=== PATIENT | female | born 1980 | race Caucasian/White ===

== ENCOUNTER 2016-08-03 10:54 | Emergency (ER) | payer MEDICAID | END 2016-08-03 12:40 | disposition home or self-care (01) | LOC: D.ER 10:54 | DX: M54.5 Low back pain (principal); I10 Essential (primary) hypertension; F31.9 Bipolar disorder, unspecified ==

== ENCOUNTER 2016-11-21 15:18 | Emergency (ER) | payer MEDICAID | END 2016-11-21 17:00 | disposition home or self-care (01) | LOC: D.ER 15:18 | DX: M25.561 Pain in right knee (principal); S82.114A Nondisplaced fracture of right tibial spine, initial encounter for closed fracture; X58.XXXA Exposure to other specified factors, initial encounter ==

== ENCOUNTER → 2016-12-04 09:37 | Outpatient (CLI) | payer MEDICAID | END | disposition home or self-care (01) | LOC: D.MRI 09:37 | DX: M25.561 Pain in right knee (principal) ==

== ENCOUNTER 2016-12-17 10:00 | Day surgery (SDC) | payer MEDICAID ==
[2016-12-14 14:47] LABS: BASOPHILS 0.2 % (0-2); EOSINOPHILS 1.2 % (0-7); HEMATOCRIT 38.5 % (36.0-48.0); HEMOGLOBIN 12.8 g/dL (12-16); IMMATURE GRANULOCYTES 0.2 % (0-5); LYMPHOCYTES 11.8 % (15-50); MCH 29.2 pg (26.0-34.0); MCHC 33.2 g/dL (31.0-37.0); MCV 87.7 fL (80.0-100.0); MEAN PLATELET VOLUME 8.9 fL (7.4-10.4); MONOCYTES 9.3 % (2-11); NEUTROPHILS 77.3 % (40-80); PLATELET COUNT 257 10x3/uL (130-400); RBC 4.39 10x6/uL (4.00-5.40); RDW 15.1 % (11.5-14.5); WBC 12.1 10x3/uL (4.8-10.8)
[2016-12-14 15:04] LABS: APTT 24.5 SECONDS (22.8-39.4); INR 1.02 (0.85-1.17); PROTIME 13.3 SECONDS (11.6-15.0)
[2016-12-14 15:05] LABS: ANION GAP 10.6 mmol/L (8-16); CALCIUM 8.5 mg/dL (8.5-10.1); CARBON DIOXIDE 25.3 mmol/L (21.0-32.0); CREATININE - SERUM 1.2 mg/dL (0.6-1.3); POTASSIUM - SERUM 3.9 mmol/L (3.5-5.1)
[~2016-12-17] VITALS: Ht 154.9 cm; Wt 111.6 kg
[~2016-12-17 10:00] MED LIST: ZIAC 5-6.25 MG1 TAB PO
--- NOTE | 2016-12-17 10:26 | NUR ---
1020 WBC RESULTS 12.1. PT STATES NO UPPER RESPIRATORY INFECTION OR PROBLEM TO ATTRIBUTE TO ELEVATED WBC COUNT. DR. RUSH INFORMED. NO ORDERS GIVEN OR RECEIVED. Reagan WOOD R.N.
[2016-12-17 11:23] VITALS: BP 108/64; Ht 154.9 cm; Wt 111.6 kg
[2016-12-17] MEDS ORDERED: HYDROCODONE-APA1 TAB PO (14:31)
--- NOTE | 2016-12-17 18:58 | NUR ---
1410 ICE PACK APPLIED TO RT KNEE AND ELEVATION 1502 ZOFRAN GIVEN PO FOR NAUSEA AND PAIN MED ORDERED 1517 NORCO 10/325MG PO GIVEN FOR PAIN 8(1-10) STATES DECREASE IN NAUSEA 1615 DC TEACHING COMPLETE PT VU PAPERS AND SCRPIT GIVEN TO SIGNIFICANT OTHER. PT VERB SHE WAS NAUSEATED WHEN SAT UP TO SIGN DC PAPERS 1620 PIV DC W/CATHETER TIP INTACT 1625 NO C/O NAUSEA ASSISTED W/GETTING DRESSED 1630 OUT TO CAR VIA WC W/SIGNIFICANT OTHER DRIVING
== END 2016-12-17 16:30 | disposition home or self-care (01) ==
LOC: D.OPS 10:00 → D.PAN 12:00 → D.OPS 16:30
PROVIDERS: Anesthesiology
DX: S83.241A Other tear of medial meniscus, current injury, right knee, initial encounter (principal); F17.200 Nicotine dependence, unspecified, uncomplicated; I10 Essential (primary) hypertension; Z01.812 Encounter for preprocedural laboratory examination

== ENCOUNTER → 2017-02-05 12:57 | Outpatient (CLI) | payer MEDICAID ==
[2016-12-17 11:23] VITALS: BMI 46.6
[~2017-02-05 12:57] MED LIST changes: +HYDROCODONE-APA1 TAB PO
== END | disposition home or self-care (01) ==
LOC: D.MRI 12:57
DX: G89.18 Other acute postprocedural pain (principal); M25.561 Pain in right knee

== ENCOUNTER 2017-02-28 05:42 | Day surgery (SDC) | payer MEDICAID ==
[2017-02-26 11:32] LABS: BASOPHILS 0.4 % (0-2); EOSINOPHILS 4.8 % (0-7); HEMATOCRIT 37.5 % (36.0-48.0); HEMOGLOBIN 12.4 g/dL (12-16); IMMATURE GRANULOCYTES 0.3 % (0-5); LYMPHOCYTES 28.1 % (15-50); MCH 29.5 pg (26.0-34.0); MCHC 33.1 g/dL (31.0-37.0); MCV 89.3 fL (80.0-100.0); MEAN PLATELET VOLUME 9.1 fL (7.4-10.4); MONOCYTES 10.8 % (2-11); NEUTROPHILS 55.6 % (40-80); PLATELET COUNT 258 10x3/uL (130-400); RDW 14.9 % (11.5-14.5); WBC 7.7 10x3/uL (4.8-10.8)
[2017-02-26 11:43] LABS: CALC OSMOLALITY 281 mosm/kg (275-300); CALCIUM 9.1 mg/dL (8.5-10.1); CARBON DIOXIDE 29.8 mmol/L (21.0-32.0); CHLORIDE - SERUM 106 mmol/L (98-107); CREATININE - SERUM 0.8 mg/dL (0.6-1.3); GLUCOSE 102 mg/dL (74-106); POTASSIUM - SERUM 3.9 mmol/L (3.5-5.1); SODIUM 142 mmol/L (136-145); UREA NITROGEN 11 mg/dL (7-18); eGFR NON AFRICAN AMERICAN 85 mL/min (90-120)
[~2017-02-28] VITALS: Ht 154.9 cm; Wt 113.4 kg
[~2017-02-28 05:42] MED LIST changes: +MELATONIN10 M1 PO
[2017-02-28 09:36] VITALS: BP 114/66; Ht 154.9 cm; Wt 113.4 kg
[2017-02-28] MEDS ORDERED: PERCOCET 10/3251 TA1 PO (11:29)
--- NOTE | 2017-02-28 13:26 | NUR ---
7840 DISCHARGE INSTRUCTIONS COMPLETE. PRESCRIPTION FOR PERCOCET GIVEN. PRESCRIPTION FOR PROMETHAZINE CALLED INTO [facility]. ESCORTED OUT BY VOLUNTEER.
--- NOTE | 2017-03-01 14:55 | OP ---
PATIENT NAME: LILIBETH PALOMARES MEDICAL RECORD: [id number] :80 LOCATION:D.OPS ADMISSION DATE: SURGEON: PHILLY RUSH MD DATE OF OPERATION: 02/28/2017 PREOPERATIVE DIAGNOSIS: Complex tear of the posterior horn of the lateral meniscus. POSTOPERATIVE DIAGNOSIS: Complex tear of the posterior horn of the lateral meniscus. PROCEDURE: Arthroscopic subtotal lateral meniscectomy. SURGEON: Philly Rush MD. ANESTHESIA: General. INTRAOPERATIVE COMPLICATIONS: None. SUMMARY OF PATHOLOGIC FINDINGS: The patient was indeed found to have a lateral meniscus tear off the posterior capsule that was subluxable into the joint. The patient's tear was both posteromedially and posterolaterally from the popliteal hiatus and the meniscus itself was in overall poor condition. OPERATIVE SUMMARY IN DETAIL: After obtaining the appropriate preoperative orthopedic surgery consent as well as anesthetic consultation, evaluation and clearance, the patient was brought to the operating room and placed on the operating table in supine position. After general laryngeal mask was administered, tourniquet was placed about the proximal aspect of the right lower extremity. Right lower extremity was then prepped and draped in routine sterile fashion. The leg was elevated and exsanguinated, tourniquet inflated to 350 mmHg. Routine inferolateral portal was established followed by superomedial portal and inferomedial portal. Diagnostic arthroscopy did reveal the above findings. There was no pathology in the medial compartment. 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 The foot was then placed in the [id number] position and with direct visualization in the lateral compartment, a combination of both arthroscopic meniscotome as well as resector were utilized to resect a large portion of the posterior lateral aspect of the lateral meniscus, thus the subtotal lateral meniscectomy. Having completed this, the knee was insufflated with 30 cc of 0.25% Marcaine with epinephrine and 40 mg of Depo-Medrol. Arthroscopy portals were closed in routine interrupted fashion using 4-0 Prolene. Sterile dressings were applied. The patient was awakened, taken to recovery room in stable condition. All final needle and sponge counts were correct. TRANSINT:[id number] Voice Confirmation ID: [id number] DOCUMENT ID: [id number] OPERATIVE REPORT [id number] DEJAWILLA FRIEDMANA John VICTOR MANUEL GOMES, PHILLY TSATON at 1455 CC: [id number] DICTATION DATE: 02/28/17 1328 CALCULUS PROFESSOR: 02/28/[address] [place] [address] 02/28/17 [place] [id number] [place] [address]
== END 2017-02-28 13:30 | disposition home or self-care (01) ==
LOC: D.OPS 05:42 → D.PAN 11:20 → D.OPS 13:30 → D.PAN 14:00
PROVIDERS: Anesthesiology
DX: S83.271A Complex tear of lateral meniscus, current injury, right knee, initial encounter (principal); F17.200 Nicotine dependence, unspecified, uncomplicated; I10 Essential (primary) hypertension; Z01.812 Encounter for preprocedural laboratory examination

== ENCOUNTER → 2017-05-17 13:54 | Outpatient (CLI) | payer MEDICAID ==
[2017-02-28 09:36] VITALS: BMI 47.3
[~2017-05-17 13:54] MED LIST changes: +ATIVAN1 MG PO; +CELEXA20 MG PO; +LITHIUM CARBON300 MG PO; +PERCOCET 10/3251 TA1 PO
== END | disposition home or self-care (01) ==
LOC: D.MRI 05-08 13:00
DX: M25.561 Pain in right knee (principal)

== ENCOUNTER → 2017-05-27 08:30 | Day surgery (SDC) | payer MEDICAID ==
[2017-05-24 14:08] LABS: HEMATOCRIT 39.7 % (36.0-48.0); HEMOGLOBIN 13.2 g/dL (12-16); MCH 29.1 pg (26.0-34.0); MCHC 33.2 g/dL (31.0-37.0); MCV 87.6 fL (80.0-100.0); RBC 4.53 10x6/uL (4.00-5.40); RDW 14.8 % (11.5-14.5); WBC 11.1 10x3/uL (4.8-10.8)
[2017-05-24 14:16] LABS: ANION GAP 12.7 mmol/L (8-16); CARBON DIOXIDE 28.3 mmol/L (21.0-32.0); CREATININE - SERUM 0.9 mg/dL (0.6-1.3)
[~2017-05-27] VITALS: Ht 154.9 cm; Wt 117.9 kg
[2017-05-27 10:47] VITALS: BP 113/71; Ht 154.9 cm; Wt 117.9 kg
--- NOTE | 2017-05-30 14:17 | OP ---
PATIENT NAME: LILIBETH PALOMARES MEDICAL RECORD: [id number] :80 LOCATION:DSVETLANA ADMISSION DATE: SURGEON: PHILLY RUSH MD DATE OF OPERATION: 05/27/2017 PREOPERATIVE DIAGNOSIS: Bucket-handle tear of the lateral meniscus of the left knee. POSTOPERATIVE DIAGNOSIS: Bucket-handle tear of the lateral meniscus of the left knee. PROCEDURE: Arthroscopic partial lateral meniscectomy. SURGEON: Philly Rush MD ANESTHESIA: General. INTRAOPERATIVE COMPLICATIONS: None. SUMMARY OF PATHOLOGIC FINDINGS: Consistent with the MRI, the patient had a bucket-handle lateral meniscus with some portions of the lateral meniscus posterior medial root into the intercondylar notch. All this was removed, the patient was found to have areas of grade II chondromalacia both medial femoral condyle and lateral femoral condyle. OPERATIVE SUMMARY IN DETAIL: After obtaining the appropriate preoperative orthopedic surgery consent as well as anesthetic consultation, evaluation and clearance, the patient was brought to the operating room and placed on table in supine position. After general laryngeal mask was administered, tourniquet was placed about the proximal aspect of left lower extremity. Left lower extremity was then prepped and draped in routine sterile fashion. The leg was elevated and exsanguinated, tourniquet inflated to 350 mmHg. Routine inferolateral portal was established followed by superomedial portal and inferomedial portal. Diagnostic arthroscopy did reveal the patient to have a bucket-handle lateral meniscus. This was taken down with a combination of meniscotomes as well as full radius resector and further debridement was carried out on the posteromedial corner of the lateral meniscus to take down the part of the root to the foot in the intercondylar notch. The residual of her knee including her medial meniscus where she had previously had a medial meniscus tear was in overall good condition. Again, small amount of arthritis was seen in both medial and lateral compartments. Having completed this, arthroscopy portals were closed in an interrupted fashion. The knee was insufflated with 30 cc of 0.25% Marcaine with epinephrine 80 mg/cc Depo-Medrol. Sterile dressings were applied. Tourniquet was deflated. The patient was awakened, taken to recovery in stable condition. All final needle and sponge counts were correct. TRANSINT:[id number] Voice Confirmation ID: [id number] DOCUMENT ID: [id number] OPERATIVE REPORT [id number] LILIBETH PALOMARES MD, PHILLY STATON at 1417 CC: [id number] DICTATION DATE: 05/27/17 1310 SOILED LINEN DISTRIBUTOR: 05/27/17 1527 [facility] 05/27/17 [place] [address] [place] [id number]
== END | disposition home or self-care (01) ==
LOC: D.OPS 08:30 → D.PAN 11:30 → D.OPS 11:30
PROVIDERS: Anesthesiology
DX: S83.252A Bucket-handle tear of lateral meniscus, current injury, left knee, initial encounter (principal); M25.561 Pain in right knee; Z01.812 Encounter for preprocedural laboratory examination; F17.200 Nicotine dependence, unspecified, uncomplicated; I10 Essential (primary) hypertension

== ENCOUNTER → 2018-02-27 09:27 | Outpatient (CLI) | payer MEDICAID ==
[2017-05-27 10:47] VITALS: BMI 49.2
[~2018-02-27 09:27] MED LIST changes: +BISOPROLOL-HCT1 EAC1 PO
== END | disposition home or self-care (01) ==
LOC: D.MRI 02-21 15:00
DX: M25.561 Pain in right knee (principal)

== ENCOUNTER 2018-03-03 11:46 | Emergency (ER) | payer MEDICAID ==
[~2018-03-03] VITALS: Ht 154.9 cm; Wt 118.2 kg
[~2018-03-03 11:46] MED LIST changes: -BISOPROLOL-HCT1 EAC1 PO
[2018-03-03 11:55] VITALS: Ht 154.9 cm; Wt 118.2 kg
[2018-03-03 12:30] LABS: BASOPHILS 0.2 % (0-2); EOSINOPHILS 3.3 % (0-7); HEMATOCRIT 35.4 % (36.0-48.0); HEMOGLOBIN 11.6 g/dL (12-16); IMMATURE GRANULOCYTES 0.2 % (0-5); LYMPHOCYTES 19.1 % (15-50); MCH 28.2 pg (26.0-34.0); MCHC 32.8 g/dL (31.0-37.0); MCV 85.9 fL (80.0-100.0); MEAN PLATELET VOLUME 8.6 fL (7.4-10.4); MONOCYTES 7.9 % (2-11); NEUTROPHILS 69.3 % (40-80); RBC 4.12 10x6/uL (4.00-5.40); RDW 15.8 % (11.5-14.5); WBC 8.9 10x3/uL (4.8-10.8)
[2018-03-03 12:32] LABS: PLATELET COUNT 213 10x3/uL (130-400)
[2018-03-03 12:42] LABS: ALBUMIN 3.5 g/dL (3.4-5.0); ALKALINE PHOSPHATASE 70 U/L (46-116); ALT (SGPT) 31 U/L (10-68); BILIRUBIN - TOTAL 0.42 mg/dL (0.2-1.3); CALC OSMOLALITY 277 mosm/kg (275-300); CALCIUM 8.9 mg/dL (8.5-10.1); CARBON DIOXIDE 25.5 mmol/L (21.0-32.0); CHLORIDE - SERUM 104 mmol/L (98-107); CREATININE - SERUM 0.9 mg/dL (0.6-1.3); GLUCOSE 104 mg/dL (74-106); POTASSIUM - SERUM 4.2 mmol/L (3.5-5.1); PROTEIN - SERUM 7.7 g/dL (6.4-8.2); SODIUM 139 mmol/L (136-145); UREA NITROGEN 13 mg/dL (7-18); eGFR NON AFRICAN AMERICAN 74 mL/min (90-120)
[2018-03-03 12:54] LABS: CKMB 0.6 U/L (0.0-3.6); CREATINE KINASE 52 UL (21-215)
[2018-03-03 12:59] LABS: TROPONIN-I < 0.017 ng/mL (0.000-0.060)
[2018-03-03] MEDS ORDERED: BISOPROLOL-HCT1 EAC1 PO (14:45)
[2018-03-03 16:08] VITALS: BP 168/94
== END 2018-03-03 16:07 | disposition home or self-care (01) ==
LOC: D.ER 11:46
PROVIDERS: Family Medicine
DX: I10 Essential (primary) hypertension (principal)

== ENCOUNTER → 2018-04-25 10:13 | Outpatient (CLI) | payer MEDICAID ==
[2018-03-03 11:55] VITALS: BMI 49.2
[~2018-04-25 10:13] MED LIST changes: +BISOPROLOL-HCT1 EAC1 PO; +ELIQUIS2.5 MG PO; +OXYCODONE-APAP1 TAB PO
== END | disposition home or self-care (01) ==
LOC: D.LABREF 10:13
DX: M17.11 Unilateral primary osteoarthritis, right knee (principal); Z11.8 Encounter for screening for other infectious and parasitic diseases

== ENCOUNTER 2018-05-14 10:00 | Inpatient (IN) | payer MEDICAID ==
[~2018-05-14] VITALS: Ht 154.9 cm; Wt 115.7 kg
--- NOTE | ~2018-05-14 | MORECARE ---
CASE MANAGEMENT DISCHARGE SUMMARY PATIENT: LILIBETH PALOMARES UNIT: [id number] ADM DATE: 05/19/18 AGE: 38 : 80 SEX: F ROOM/BED: D.2212 AUTHOR: MISHEL,DOC PHYSICIAN: REFERRING PHYSICIAN: PHILLY RUSH MD DATE OF SERVICE: 05/21/18 Discharge Plan Patient Name: LILIBETH PALOMARES Facility: [facility]:[place] : 1980 Planned Disposition: Home with Home Health Anticipated Discharge Date: Discharge Date: Expected LOS: Initial Reviewer: [email or web address] Initial Review Date: 05/19/2018 Generated: 05/21/18 2:08 pm Comments DCP- Discharge Planning Updated by [email or web address]: Re Motta on 05/21/18 11:[address] Patient Name: LILIBETH PALOMARES Admission Status: Elective Accout number: [id number] Admission Date: 05-19-2018 : 1980 Admission Diagnosis: Attending: PHILLY RUSH Current LOS: 2 Anticipated DC Date: Planned Disposition: Home with Home Health Primary Insurance: MEDICAID [place] Discharge Planning Comments: CM met with patient to assess discharge planning needs. Patient stated that she will be discharging home and would like to have home health for her therapy. She will be living where she will not have to use the stairs. She will need a walker, BSC and CPM at dc. I will call and make sure all is delivered prior to DC. CECELIA with [employer] [facility], I spoke with Shanell . CM will continue to follow and assist with DC planning V Belt Curer: Re Motta DCPIA - Discharge Planning Initial Assessment Updated by [email or web address]: Re Motta on 05/21/18 12:56 pm * Is the patient Alert and Oriented? Yes * How many steps to enter\exit or inside your home? downstairs * [facility] * [facility] [address] * Preadmission Environment Home with Family * ADLs Independent * Equipment Walker * List name and contact numbers for known caregivers / representatives who currently or will assist patient after discharge: genia [phone] * Verbal permission to speak to the caregivers and representatives has been obtained from the patient. N/A * Community resources currently utilized None * Additional services required to return to the preadmission environment? No * Can the patient safely return to the preadmission environment? Yes * Has this patient been hospitalized within the prior 30 days at any hospital? No External Providers [facility] Next Contact Date: Service Request Date: Service Type: Resolution: Reviewer: Comments: Last DP export: 05/21/18 11:59 a Patient Name: LILIBETH PALOMARES Page 02692 at 1308 All edits/amendments must be made on the electronic document DICTATION DATE: 05/21/18 1307 [employer] ARCHITECT: LUCILA 05/21/18 1307 RPT#: [id number] DC DATE: STATUS: ADM IN [facility] [address] [place] [address] END OF REPORT
--- NOTE | ~2018-05-14 | MORECARE ---
CASE MANAGEMENT DISCHARGE SUMMARY PATIENT: LILIBETH PALOMARES UNIT: [id number] ADM DATE: 05/19/18 AGE: 38 : 80 SEX: F ROOM/BED: D.2212 AUTHOR: MISHEL,DOC PHYSICIAN: REFERRING PHYSICIAN: PHILLY RUSH MD DATE OF SERVICE: 05/21/18 Discharge Plan Patient Name: LILIBETH PALOMARES Facility: [facility]:[place] : 1980 Planned Disposition: Home with Home Health Anticipated Discharge Date: Discharge Date: Expected LOS: Initial Reviewer: [email or web address] Initial Review Date: 05/19/2018 Generated: 05/21/18 1:59 pm Comments DCP- Discharge Planning Updated by [email or web address]: Re Motta on 05/21/18 11:[address] Patient Name: LILIBETH PALOMARES Admission Status: Elective Accout number: [id number] Admission Date: 05-19-2018 : 1980 Admission Diagnosis: Attending: PHILLY RUSH Current LOS: 2 Anticipated DC Date: Planned Disposition: Home with Home Health Primary Insurance: MEDICAID [place] Discharge Planning Comments: CM met with patient to assess discharge planning needs. Patient stated that she will be discharging home and would like to have home health for her therapy. She will be living where she will not have to use the stairs. She will need a walker, BSC and CPM at dc. I will call and make sure all is delivered prior to DC. CECELIA with [employer] [facility], I spoke with Shanell . CM will continue to follow and assist with DC planning Ship Pilot: Re Motta DCPIA - Discharge Planning Initial Assessment Updated by [email or web address]: Re Motta on 05/21/18 12:56 pm * Is the patient Alert and Oriented? Yes * How many steps to enter\exit or inside your home? downstairs * [facility] * [facility] [address] * Preadmission Environment Home with Family * ADLs Independent * Equipment Walker * List name and contact numbers for known caregivers / representatives who currently or will assist patient after discharge: genia [phone] * Verbal permission to speak to the caregivers and representatives has been obtained from the patient. N/A * Community resources currently utilized None * Additional services required to return to the preadmission environment? No * Can the patient safely return to the preadmission environment? Yes * Has this patient been hospitalized within the prior 30 days at any hospital? No Patient Name: LILIBETH PALOMARES Page 15419 at 1259 All edits/amendments must be made on the electronic document DICTATION DATE: 05/21/181258 DETAIL DRAFTER: LUCILA 05/21/181258 RPT#: [id number] DC DATE: STATUS: ADM IN [facility] [address] [place] [address] END OF REPORT
--- NOTE | ~2018-05-14 | MORECARE ---
CASE MANAGEMENT DISCHARGE SUMMARY PATIENT: LILIBETH PALOMARES UNIT: [id number] ADM DATE: 05/19/18 AGE: 38 : 80 SEX: F ROOM/BED: D.2212 AUTHOR: ABDIAZIZ FLORENTINO PHYSICIAN: REFERRING PHYSICIAN: PHILLY RUSH MD DATE OF SERVICE: 05/22/18 Discharge Plan Patient Name: LILIBETH PALOMARES Facility: [facility]:[place] : 1980 Planned Disposition: Home with Home Health Anticipated Discharge Date: Discharge Date: Expected LOS: Initial Reviewer: [email or web address] Initial Review Date: 05/19/2018 Generated: 05/22/18 12:10 pm Comments DCP- Discharge Planning Updated by [email or web address]: Re Motta on 05/22/18 10:[address] PATIENT WILL BE DISCHARGING TODAY WITH [facility], [facility]ALKER TO THE HOSPITAL AND CPM AND BSC TO HER HOME. CM WILL CONTINUE TO FOLLOW AND ASSIST WITH DC PLANNING NEEDS DCP- Discharge Planning Updated by [email or web address]: Re Motta on 05/21/18 11:[address] Patient Name: LILIBETH PALOMARES Admission Status: Elective Accout number: [id number] Admission Date: 05-19-2018 : 1980 Admission Diagnosis: Attending: PHILLY RUSH Current LOS: 2 Anticipated DC Date: Planned Disposition: Home with Home Health Primary Insurance: MEDICAID [place] Discharge Planning Comments: CM met with patient to assess discharge planning needs. Patient stated that she will be discharging home and would like to have home health for her therapy. She will be living where she will not have to use the stairs. She will need a walker, BSC and CPM at dc. I will call and make sure all is delivered prior to DC. CECELIA with [employer] [facility], I spoke with Shanell . CM will continue to follow and assist with DC planning Wellness Guide: Re Motta DCPIA - Discharge Planning Initial Assessment Updated by [email or web address]: Re Motta on 05/21/18 12:56 pm * Is the patient Alert and Oriented? Yes * How many steps to enter\exit or inside your home? downstairs * [facility] * [facility] [address] * Preadmission Environment Home with Family * ADLs Independent * Equipment Walker * List name and contact numbers for known caregivers / representatives who currently or will assist patient after discharge: genia [phone] * Verbal permission to speak to the caregivers and representatives has been obtained from the patient. N/A * Community resources currently utilized None * Additional services required to return to the preadmission environment? No * Can the patient safely return to the preadmission environment? Yes * Has this patient been hospitalized within the prior 30 days at any hospital? No Last DP export: 05/21/18 12:08 p Patient Name: LILIBETH PALOMARES Page 75633 at 1110 All edits/amendments must be made on the electronic document DICTATION DATE: 05/22/181108 DENTAL PATIENT COORDINATOR: LUCILA 05/22/181108 RPT#: [id number] DC DATE: STATUS: ADM IN [facility] [address] [place] [address] END OF REPORT
--- NOTE | ~2018-05-14 | MORECARE ---
CASE MANAGEMENT DISCHARGE SUMMARY PATIENT: LILIBETH PALOMARES UNIT: [id number] ADM DATE: 05/19/18 AGE: 38 : 80 SEX: F ROOM/BED: D.2212 AUTHOR: ABDIAZIZ FLORENTINO PHYSICIAN: REFERRING PHYSICIAN: PHILLY RUSH MD DATE OF SERVICE: 05/22/18 Discharge Plan Patient Name: LILIBETH PALOMARES Facility: [facility]:[place] : 1980 Planned Disposition: Home with Home Health Anticipated Discharge Date: Discharge Date: Expected LOS: Initial Reviewer: [email or web address] Initial Review Date: 05/19/2018 Generated: 05/22/18 2:52 pm Comments DCP- Discharge Planning Updated by [email or web address]: Re Motta on 05/22/18 12:[address] PATIENT IS DISCHARING TODAY. PAIN MEDICINE SCRIPT NEEDED TO BE PRE AUTH I CALLED [phone] SPOKE WITH JOSIAH, SHE STATED THAT THEY NEEDED CLINICALS FAXED IN I FAXED CLINICALS TO [phone]. I EXPLAINED ALL TO THE PATIENT. CM WILL CONTINUE TO FOLLOW AND ASSSIST WITH DC PLANNING DCP- Discharge Planning Updated by [email or web address]: Re Motta on 05/22/18 10:[address] PATIENT WILL BE DISCHARGING TODAY WITH [facility], [facility] WALKER TO THE HOSPITAL AND CPM AND BSC TO HER HOME. CM WILL CONTINUE TO FOLLOW AND ASSIST WITH DC PLANNING NEEDS DCP- Discharge Planning Updated by [email or web address]: Re Motta on 05/21/18 11:[address] Patient Name: LILIBETH PALOMARES Admission Status: Elective Accout number: [id number] Admission Date: 05-19-2018 : 1980 Admission Diagnosis: Attending: PHILLY RUSH Current LOS: 2 Anticipated DC Date: Planned Disposition: Home with Home Health Primary Insurance: MEDICAID [place] Discharge Planning Comments: CM met with patient to assess discharge planning needs. Patient stated that she will be discharging home and would like to have home health for her therapy. She will be living where she will not have to use the stairs. She will need a walker, BSC and CPM at dc. I will call and make sure all is delivered prior to DC. CECELIA with [employer], I spoke with Shanell . CM will continue to follow and assist with DC planning Lining Closer: Re Motta DCPIA - Discharge Planning Initial Assessment Updated by [email or web address]: Re Motta on 05/21/18 12:56 pm * Is the patient Alert and Oriented? Yes * How many steps to enter\exit or inside your home? downstairs * [facility] * [facility] [address] * Preadmission Environment Home with Family * ADLs Independent * Equipment Walker * List name and contact numbers for known caregivers / representatives who currently or will assist patient after discharge: genia [phone] * Verbal permission to speak to the caregivers and representatives has been obtained from the patient. N/A * Community resources currently utilized None * Additional services required to return to the preadmission environment? No * Can the patient safely return to the preadmission environment? Yes * Has this patient been hospitalized within the prior 30 days at any hospital? No Last DP export: 05/22/18 10:10 a Patient Name: LILIBETH PALOMARES Page 04217 at 1352 All edits/amendments must be made on the electronic document DICTATION DATE: 05/22/18 1351 TICKET MANAGER: LUCILA 05/22/18 1351 RPT#: [id number] DC DATE: STATUS: ADM IN [facility] [address] [place] [address] END OF REPORT
[~2018-05-14 10:00] MED LIST changes: -ELIQUIS2.5 MG PO; -OXYCODONE-APAP1 TAB PO
[2018-05-14 11:58] LABS: BASOPHILS 0.2 % (0-2); EOSINOPHILS 2.1 % (0-7); HEMOGLOBIN 13.2 g/dL (12-16); IMMATURE GRANULOCYTES 0.2 % (0-5); LYMPHOCYTES 19.1 % (15-50); MCH 29.1 pg (26.0-34.0); MCV 88.3 fL (80.0-100.0); MONOCYTES 7.4 % (2-11); RBC 4.53 10x6/uL (4.00-5.40); RDW 16.2 % (11.5-14.5)
[2018-05-14 12:00] LABS: PLATELET COUNT 260 10x3/uL (130-400)
[2018-05-14 12:02] LABS: APTT 25.4 SECONDS (22.8-39.4); INR 1.03 (0.85-1.17)
[2018-05-14 12:06] LABS: ANION GAP 11.6 mmol/L (8-16); CALCIUM 9.4 mg/dL (8.5-10.1); CARBON DIOXIDE 28.3 mmol/L (21.0-32.0); POTASSIUM - SERUM 3.9 mmol/L (3.5-5.1)
[2018-05-14 12:16] LABS: APPEARANCE SL CLDY (CLEAR); BACTERIA MANY /hpf (NONE SEEN); BILIRUBIN NEGATIVE (NEGATIVE); COLOR YELLOW (YELLOW); EPITHELIAL CELLS 0-5 /hpf (0-5); GLUCOSE NEGATIVE (NEGATIVE); KETONE NEGATIVE (NEGATIVE); MUCUS <1+ /lpf (NONE SEEN); NITRITE NEGATIVE (NEGATIVE); PROTEIN NEGATIVE (NEGATIVE); RED CELLS - URINE 0-5 /hpf (0-5); SPECIFIC GRAVITY 1.015 (1.005-1.020); UROBILINOGEN NORMAL (NORMAL)
[2018-05-19 11:52] VITALS: BP 112/81; BMI 47.3
[2018-05-19 17:52] VITALS: BP 135/89
[2018-05-19 18:07] VITALS: BP 105/83; Ht 154.9 cm; Wt 115.7 kg
[2018-05-19 20:00] VITALS: BP 128/81
[2018-05-20 05:05] LABS: HEMATOCRIT 34.1 % (36.0-48.0); HEMOGLOBIN 11.3 g/dL (12-16); MCH 29.4 pg (26.0-34.0); MCHC 33.1 g/dL (31.0-37.0); MCV 88.6 fL (80.0-100.0); MEAN PLATELET VOLUME 8.8 fL (7.4-10.4); RBC 3.85 10x6/uL (4.00-5.40); RDW 15.9 % (11.5-14.5); WBC 16.6 10x3/uL (4.8-10.8)
[2018-05-20 06:03] VITALS: BP 124/87
[2018-05-20 08:19] VITALS: BP 112/78
[2018-05-20 11:39] VITALS: BP 130/58
[2018-05-20 15:54] VITALS: BP 102/59
[2018-05-20 22:49] VITALS: BP 117/67
[2018-05-21] VITALS: BP 119/79; BP 120/71
[2018-05-21 04:48] LABS: HEMATOCRIT 32.8 % (36.0-48.0); HEMOGLOBIN 10.5 g/dL (12-16); MCH 28.9 pg (26.0-34.0); MCV 90.4 fL (80.0-100.0); MEAN PLATELET VOLUME 9.1 fL (7.4-10.4); RBC 3.63 10x6/uL (4.00-5.40); RDW 16.5 % (11.5-14.5)
[2018-05-21 04:54] LABS: WBC 11.5 10x3/uL (4.8-10.8)
[2018-05-21 06:34] VITALS: BP 120/71
[2018-05-21 08:34] VITALS: BP 143/80
[2018-05-21 12:03] VITALS: BP 105/68
[2018-05-21 16:21] VITALS: BP 109/69
[2018-05-21 20:00] VITALS: BP 108/61
[2018-05-22 05:40] VITALS: BP 121/81
[2018-05-22] MEDS ORDERED: ELIQUIS2.5 MG PO (08:02)
[2018-05-22] MEDS ORDERED: OXYCODONE-APAP1 TAB PO (08:03)
[2018-05-22 10:20] VITALS: BP 120/80
[2018-05-22 12:34] VITALS: BP 104/59
== END 2018-05-22 14:35 | disposition home health service (06) | DRG 470 ==
LOC: D.SDCHOLD 10:00 → D.MS 05-19 16:24
PROVIDERS: Orthopaedic Surgery
PROC: 0SRC0JZ Replacement of Right Knee Joint with Synthetic Substitute, Open Approach (ICD-10-PCS; principal; 2018-05-19 12:30)
DX: M17.11 Unilateral primary osteoarthritis, right knee (principal); I10 Essential (primary) hypertension

== ENCOUNTER → 2018-05-26 13:46 | Outpatient (CLI) | payer MEDICAID ==
[~2018-05-26 13:46] MED LIST changes: +ELIQUIS2.5 MG PO; +OXYCODONE-APAP1 TAB PO
== END | disposition home or self-care (01) ==
LOC: D.US 13:30
DX: R60.0 Localized edema (principal)

== ENCOUNTER 2018-08-25 07:22 | Day surgery (SDC) | payer MEDICAID ==
[~2018-08-25] VITALS: Ht 154.9 cm; Wt 119.7 kg
[2018-08-25 08:03] LABS: CALC OSMOLALITY 281 mosm/kg (275-300); CALCIUM 9.1 mg/dL (8.5-10.1); CARBON DIOXIDE 26.8 mmol/L (21.0-32.0); CHLORIDE - SERUM 105 mmol/L (98-107); CREATININE - SERUM 0.8 mg/dL (0.6-1.3); GLUCOSE 94 mg/dL (74-106); POTASSIUM - SERUM 3.8 mmol/L (3.5-5.1); SODIUM 142 mmol/L (136-145); UREA NITROGEN 10 mg/dL (7-18); eGFR NON AFRICAN AMERICAN 85 mL/min (90-120)
[2018-08-25] MEDS ORDERED: HYDROCODON-ACE1 EA10 PO ×2 (08:15→09:27)
[2018-08-25 08:21] VITALS: BP 120/64; Ht 154.9 cm; Wt 119.7 kg
[2018-08-25 08:50] LABS: HEMATOCRIT 36.2 % (36.0-48.0); HEMOGLOBIN 12.1 g/dL (12-16); MCH 28.3 pg (26.0-34.0); MCHC 33.4 g/dL (31.0-37.0); MCV 84.6 fL (80.0-100.0); MEAN PLATELET VOLUME 9.7 fL (7.4-10.4); RBC 4.28 10x6/uL (4.00-5.40); RDW 15.8 % (11.5-14.5); WBC 8.7 10x3/uL (4.8-10.8)
--- NOTE | 2018-09-01 10:49 | OP ---
PATIENT NAME: LILIBETH PALOMARES MEDICAL RECORD: [id number] :80 LOCATION:[facility]OY[facility] ADMISSION DATE: SURGEON: PHILLY RUSH MD DATE OF OPERATION: 08/25/2018 PREOPERATIVE DIAGNOSIS: Arthrofibrosis of the right knee, status post total knee arthroplasty (stiff knee). POSTOPERATIVE DIAGNOSIS: Arthrofibrosis of the right knee, status post total knee arthroplasty (stiff knee). PROCEDURE: Manipulation under anesthesia. SURGEON: Philly Rush MD ANESTHESIA: TIVA. INTRAOPERATIVE COMPLICATIONS: None. SUMMARY OF PATHOLOGIC FINDINGS: The patient indeed had good results with the manipulation with flexion to approximately 140 degrees as well as extension to 0. OPERATIVE SUMMARY IN DETAIL: After obtaining appropriate preoperative orthopedic surgery consent as well as anesthetic consultation, evaluation and clearance, the patient was brought to the operating room and left on the gurney. After TIVA anesthesia had been administered, the patient's tibia was well braced and the knee was taken flexion and gently ranged with good release of adhesions to approximately 140 degrees. It was then taken in extension and also gently ranged to 0. Again, good release of posterior adhesions was noted. Having completed this, the patient was awakened and taken back to outpatient in stable condition. All final needle and sponge counts were correct. TRANSINT:[id number] Voice Confirmation ID: [id number] DOCUMENT ID: [id number] PHILLY RUSH MD at 1049 CC: [id number] DICTATION DATE: 08/29/18 1044 GENERAL NEUROLOGIST: 08/29/18 1125 [facility] 08/25/18 [place] [id number]
== END 2018-08-25 11:45 | disposition home or self-care (01) ==
LOC: D.OPS 07:22 → D.PAN 13:00 → D.OPS 13:00
PROVIDERS: Anesthesiology; ATTEND Orthopaedic Surgery
DX: M24.661 Ankylosis, right knee (principal)

== ENCOUNTER → 2018-09-23 10:14 | Outpatient (CLI) | payer MEDICAID ==
[2018-08-25 08:21] VITALS: BMI 50.0
[~2018-09-23 10:14] MED LIST changes: +HYDROCODON-ACE1 EA10 PO
== END | disposition home or self-care (01) ==
LOC: D.MRI 10:14
PROVIDERS: ATTEND Clinical Nurse Specialist Family Health
DX: M54.16 Radiculopathy, lumbar region (principal)

== ENCOUNTER → 2018-12-05 09:25 | Outpatient (CLI) | payer MEDICAID ==
[2018-08-25 08:21] VITALS: BMI 50.0
== END | disposition home or self-care (01) ==
LOC: D.NM 09:25
PROVIDERS: ATTEND Orthopaedic Surgery
DX: Z96.651 Presence of right artificial knee joint (principal)

== ENCOUNTER 2019-01-05 09:14 | Day surgery (SDC) | payer MEDICAID ==
[~2019-01-05] VITALS: Ht 154.9 cm; Wt 113.4 kg
[~2019-01-05 09:14] MED LIST changes: +PROZAC40 MG PO
[2019-01-05 09:51] LABS: HEMATOCRIT 36.7 % (36.0-48.0); HEMOGLOBIN 12.7 g/dL (12-16); MCH 30.1 pg (26.0-34.0); MCHC 34.6 g/dL (31.0-37.0); MEAN PLATELET VOLUME 8.1 fL (7.4-10.4); RBC 4.22 10x6/uL (4.00-5.40); RDW 15.2 % (11.5-14.5); WBC 9.2 10x3/uL (4.8-10.8)
[2019-01-05] MEDS ORDERED: ATARAX 25 MG TA25 MG PO (10:31)
[2019-01-05 10:46] VITALS: BP 129/83; Ht 154.9 cm; Wt 113.4 kg
--- NOTE | 2019-01-05 11:03 | NUR ---
DR. AGGARWAL NOTIFIED AND REVIEWED PT'S BEHAVIOR AND ASSESSMENT RESULTS. PT IS A LOW RISK PER DR. AGGARWAL. DR. AGGARWAL STTAED TO GIVE RESOURCES TO PT AT TIME OF DISCHARGE. NO FURTHER ORDERS TA THIS TIME. RESOURCES REVIEWED WITH PT AND SHE VERBALIZED UNDERSTANDING.
[2019-01-05] MEDS ORDERED: HYDROCODON-ACE1 EA10 PO (12:24)
--- NOTE | 2019-01-05 15:54 | NUR ---
1420 PT'S PAIN LEVEL IS GOING UP AND STATES SHE WANTS A PAIN PILL BEFORE BEING DISCARGED HOME.
--- NOTE | 2019-01-05 15:55 | NUR ---
1510 PT STATES THAT PAIN LEVEL HAS GONE FROM A 6 TO A 5 AT PRESENT.
--- NOTE | 2019-01-05 15:56 | NUR ---
1515 IV DC'D. CATHETER INTACT. NO BLEEDING AT SITE. BANDAID APPLIED.
--- NOTE | 2019-01-05 15:56 | NUR ---
1530 PT REPORTS PAIN LEVEL AT 4 CURRENTLY. IS USING A WALKER TO AMBULATE TO BATHROOM TO VOID BEFORE DISCHARGE HOME.
--- NOTE | 2019-01-08 12:35 | OP ---
PATIENT NAME: LILIBETH PALOMARES MEDICAL RECORD: [id number] :80 LOCATION:[facility]OYD ADMISSION DATE: SURGEON: PHILLY RUSH MD DATE OF OPERATION: 01/05/2019 PREOPERATIVE DIAGNOSES: 1. Painful pes anserine of the right knee. 2. Stiff knee. POSTOPERATIVE DIAGNOSES: 1. Painful pes anserine of the right knee. 2. Stiff knee. PROCEDURE: 1. Excision of painful pes anserine medial aspect of the right knee. 2. Manipulation under anesthesia. INTRAOPERATIVE COMPLICATIONS: None. SUMMARY OF PATHOLOGIC FINDINGS: The patient had a large knot stack of #2 Ethibond incorporated into the pes anserine likely causing the patient's pain with flexion and the patient's pain along the medial joint line. Previously, the patient had done well for a very short period of time with cortisone and lidocaine injections. OPERATIVE SUMMARY IN DETAIL: After obtaining the appropriate preoperative orthopedic surgery consent as well as anesthetic consultation, evaluation and clearance, the patient was brought to the operating room and placed on the operating table in supine position. After general laryngeal mask airway was administered, tourniquet was placed about the proximal aspect of the right lower extremity. Right lower extremity was then prepped and draped in routine sterile fashion. At this point, the appropriate timeout was taken using all the appropriate patient identifiers. This was agreed upon by all in the OR suite. After all was agreed upon by everyone in the OR suite, leg was elevated, exsanguinated and tourniquet was inflated to 350 mmHg. An incision was made directly over the pes anserine and taken down where the semimembranosus and semitendinosus insertion was found. This was at the point where the large knot stack was discovered just juxtaposed to the pes anserine incorporating part of the 2 tendons. This was all serially and sequentially removed. The tendons were gently spread and the pes anserine bursa itself was removed by curettage. Having completed this, the wound was copiously irrigated and then the knee was taken through a range of motion and good flexion to approximately 145 degrees was achieved with manipulation as was extension. At this point, the wound was closed by FRAN Carl[place] with a combination of #1 Vicryl, 2-0 Vicryl and skin francois. Sterile dressings were applied. The patient was awakened and taken to the recovery room in stable condition. All final needle and sponge counts were correct. TRANSINT:[id number] Voice Confirmation ID: [id number] DOCUMENT ID: [id number] OPERATIVE REPORT [id number] LILIBETH PALOMARES MD, PHILLY STATON at 1235 CC: [id number] DICTATION DATE: 01/08/19 1051 MOP MAN: 01/08/[address] [facility] 01/05/[address] [address]
== END 2019-01-05 15:37 | disposition home or self-care (01) ==
LOC: D.OPS 09:14 → D.PAN 13:45 → D.OPS 15:37
PROVIDERS: Anesthesiology; ATTEND Orthopaedic Surgery
DX: M25.661 Stiffness of right knee, not elsewhere classified (principal); M25.561 Pain in right knee

== ENCOUNTER 2019-01-25 14:14 | Emergency (ER) | payer MEDICAID ==
[~2019-01-25] VITALS: Ht 154.9 cm; Wt 111.4 kg
[~2019-01-25 14:14] MED LIST changes: +ATARAX 25 MG TA25 MG PO
[2019-01-25 14:20] VITALS: Ht 154.9 cm; Wt 111.4 kg
[2019-01-25 14:41] LABS: BASOPHILS 0.3 % (0-2); EOSINOPHILS 3.1 % (0-7); HEMATOCRIT 37.9 % (36.0-48.0); HEMOGLOBIN 13.2 g/dL (12-16); IMMATURE GRANULOCYTES 0.2 % (0-5); LYMPHOCYTES 25.1 % (15-50); MCH 30.3 pg (26.0-34.0); MCHC 34.8 g/dL (31.0-37.0); MCV 86.9 fL (80.0-100.0); MEAN PLATELET VOLUME 8.6 fL (7.4-10.4); MONOCYTES 6.2 % (2-11); NEUTROPHILS 65.1 % (40-80); RBC 4.36 10x6/uL (4.00-5.40); RDW 14.1 % (11.5-14.5); WBC 6.1 10x3/uL (4.8-10.8)
[2019-01-25 14:42] LABS: PLATELET COUNT 228 10x3/uL (130-400)
[2019-01-25] MEDS ORDERED: MINOCYCLINE HCL75 M1 PO (14:52)
[2019-01-25] MEDS ORDERED: HYDROCODON-ACE1 EA10 PO (14:56)
[2019-01-25 14:59] LABS: ALBUMIN 3.5 g/dL (3.4-5.0); BILIRUBIN - TOTAL 0.55 mg/dL (0.2-1.3); C-REACTIVE PROTEIN 0.4 mg/dL (0.0-0.9); CALCIUM 8.9 mg/dL (8.5-10.1); CARBON DIOXIDE 24.6 mmol/L (21.0-32.0); CREATININE - SERUM 1.1 mg/dL (0.6-1.3); POTASSIUM - SERUM 3.6 mmol/L (3.5-5.1); PROTEIN - SERUM 7.2 g/dL (6.4-8.2)
[2019-01-25 15:23] VITALS: BP 145/96
== END 2019-01-25 15:40 | disposition home or self-care (01) ==
LOC: D.ER 14:14
PROVIDERS: Emergency Medicine
DX: L03.115 Cellulitis of right lower limb (principal)

== ENCOUNTER 2019-06-25 21:16 | Emergency (ER) | payer MEDICAID ==
[~2019-06-25] VITALS: Ht 154.9 cm; Wt 111.4 kg
[~2019-06-25 21:16] MED LIST changes: +MINOCYCLINE HCL75 M1 PO
[2019-06-25 21:28] VITALS: Ht 154.9 cm; Wt 111.4 kg
[2019-06-25 21:52] LABS: BASOPHILS 0.3 % (0-2); EOSINOPHILS 2.8 % (0-7); HEMATOCRIT 38.5 % (36.0-48.0); HEMOGLOBIN 12.8 g/dL (12-16); IMMATURE GRANULOCYTES 0.1 % (0-5); LYMPHOCYTES 19.6 % (15-50); MCH 30.3 pg (26.0-34.0); MCHC 33.2 g/dL (31.0-37.0); MEAN PLATELET VOLUME 8.7 fL (7.4-10.4); MONOCYTES 7.2 % (2-11); PLATELET COUNT 232 10x3/uL (130-400); RBC 4.23 10x6/uL (4.00-5.40); RDW 15.1 % (11.5-14.5)
[2019-06-25 22:02] LABS: CALC OSMOLALITY 278 mosm/kg (275-300); CARBON DIOXIDE 27.8 mmol/L (21.0-32.0); CHLORIDE - SERUM 106 mmol/L (98-107); CREATININE - SERUM 0.8 mg/dL (0.6-1.3); GLUCOSE 108 mg/dL (74-106); POTASSIUM - SERUM 4.1 mmol/L (3.5-5.1); SODIUM 140 mmol/L (136-145); UREA NITROGEN 10 mg/dL (7-18); eGFR NON AFRICAN AMERICAN 85 mL/min (90-120)
[2019-06-25 22:08] LABS: ALBUMIN 3.5 g/dL (3.4-5.0); ALKALINE PHOSPHATASE 58 U/L (46-116); ALT (SGPT) 25 U/L (10-68); BILIRUBIN - TOTAL 0.35 mg/dL (0.2-1.3); C-REACTIVE PROTEIN 1.5 mg/dL (0.0-0.9); PROTEIN - SERUM 7.7 g/dL (6.4-8.2)
[2019-06-25] MEDS ORDERED: AUGMENTIN 875-11 TAB PO (23:37)
[2019-06-26 00:02] VITALS: BP 140/82
== END 2019-06-26 00:02 | disposition home or self-care (01) ==
LOC: D.ER 21:16
PROVIDERS: Family Medicine
DX: I88.8 Other nonspecific lymphadenitis (principal); I10 Essential (primary) hypertension

== ENCOUNTER → 2019-07-16 17:19 | Outpatient (CLI) | payer MEDICAID ==
[2019-06-25 21:28] VITALS: BMI 46.4
[~2019-07-16 17:19] MED LIST changes: +AUGMENTIN 875-11 TAB PO
[2019-07-16 17:29] LABS: BASOPHILS 0.4 % (0-2); HEMATOCRIT 37.9 % (36.0-48.0); HEMOGLOBIN 12.7 g/dL (12-16); IMMATURE GRANULOCYTES 0.1 % (0-5); MCH 30.1 pg (26.0-34.0); MCHC 33.5 g/dL (31.0-37.0); MCV 89.8 fL (80.0-100.0); MEAN PLATELET VOLUME 9.2 fL (7.4-10.4); MONOCYTES 8.2 % (2-11); NEUTROPHILS 68.3 % (40-80); PLATELET COUNT 250 10x3/uL (130-400); RBC 4.22 10x6/uL (4.00-5.40); RDW 14.9 % (11.5-14.5); WBC 8.2 10x3/uL (4.8-10.8)
[2019-07-16 18:31] LABS: ERYTHROCYTE SEDIMENTATION RATE 22 mm/hr (0-20)
== END | disposition home or self-care (01) ==
LOC: D.LABREF 17:19
PROVIDERS: ATTEND Clinical Nurse Specialist Family Health
DX: M25.561 Pain in right knee (principal)

== ENCOUNTER 2019-08-05 13:29 | Inpatient (IN) | payer MEDICAID ==
[~2019-08-05] VITALS: Ht 154.9 cm; Wt 115.9 kg
[2019-10-27] MEDS ORDERED: KLONOPIN0.5 MG PO (18:15)
[2019-10-27] MEDS ORDERED: PROZAC20 MG PO (18:15)
[2019-10-27] MEDS ORDERED: SEROQUEL50 MG PO (18:16)
[2019-10-27] MEDS ORDERED: MINIPRESS2 MG PO (18:16)
[2019-10-28 09:33] LABS: CALC OSMOLALITY 266 mosm/kg (275-300); CALCIUM 8.9 mg/dL (8.5-10.1); CARBON DIOXIDE 25.8 mmol/L (21.0-32.0); CHLORIDE - SERUM 102 mmol/L (98-107); CREATININE - SERUM 0.8 mg/dL (0.6-1.3); GLUCOSE 106 mg/dL (74-106); POTASSIUM - SERUM 4.1 mmol/L (3.5-5.1); SODIUM 133 mmol/L (136-145); UREA NITROGEN 16 mg/dL (7-18); eGFR NON AFRICAN AMERICAN 85 mL/min (90-120)
[2019-10-28 09:36] LABS: APTT 25.4 SECONDS (22.8-39.4); INR 0.91 (0.85-1.17); PROTIME 12.3 SECONDS (11.6-15.0)
[2019-10-28 09:42] LABS: BASOPHILS 0.2 % (0-2); EOSINOPHILS 3.6 % (0-7); HEMATOCRIT 39.7 % (36.0-48.0); HEMOGLOBIN 13.2 g/dL (12-16); IMMATURE GRANULOCYTES 0.3 % (0-5); LYMPHOCYTES 23.4 % (15-50); MCH 30.6 pg (26.0-34.0); MCHC 33.2 g/dL (31.0-37.0); MCV 92.1 fL (80.0-100.0); MEAN PLATELET VOLUME 8.6 fL (7.4-10.4); MONOCYTES 7.8 % (2-11); NEUTROPHILS 64.7 % (40-80); PLATELET COUNT 255 10x3/uL (130-400); RBC 4.31 10x6/uL (4.00-5.40); WBC 9.4 10x3/uL (4.8-10.8)
[2019-10-28 09:59] LABS: BILIRUBIN NEGATIVE (NEGATIVE); GLUCOSE NEGATIVE (NEGATIVE); KETONE NEGATIVE (NEGATIVE); NITRITE NEGATIVE (NEGATIVE); UROBILINOGEN NORMAL (NORMAL); WHITE CELLS - URINE 0-5 /hpf (NEGATIVE)
[2019-10-28 10:00] LABS: AMORPHOUS SEDIMENT <1+ /lpf (NONE SEEN); BACTERIA MODERATE /hpf (NEGATIVE); RED CELLS - URINE OCC /hpf (0-5)
--- NOTE | 2019-10-28 10:17 | NUR ---
1015-UA RESULTS CALLED TO DR RUSH'S OFFICE.
[2019-11-04 07:04] VITALS: BP 113/77; BMI 49.2
[2019-11-04 09:12] LABS: BILIRUBIN NEGATIVE (NEGATIVE); GLUCOSE NEGATIVE (NEGATIVE); KETONE NEGATIVE (NEGATIVE); NITRITE NEGATIVE (NEGATIVE); SPECIFIC GRAVITY 1.015 (1.005-1.020); UROBILINOGEN NORMAL (NORMAL)
--- NOTE | 2019-11-04 10:31 | NUR ---
PT RIGHT LEG CLEANSED WITH ALCOHOL AND HIBECLEANSE FROM HIP TO TOES CIRCUMFERENTIALLY PRIOR TO PREPPING LEG WITH CHLORAPREP X 3. MINIMAL TRAFFIC IN ROOM
[2019-11-04 11:18] VITALS: BP 117/75
--- NOTE | 2019-11-04 11:27 | NUR ---
RECEIVED PATIENT FROM RECOVERY VIA BED ACCOMPANIED BY STAFF. ALERT AND ORIENTED. NO C/O PAIN. NO S/S OF ACUTE DISTRESS NOTED. IV TO LEFT FOREARM, SL. SITE PATENT WITHOUT REDNESS OR SWELLING. DRESSING TO RIGHT KNEE, C/D/I. DENIES ANY NEEDS AT THIS TIME. CALL LIGHT IN REACH. WILL CONTINUE TO MONITOR.
--- NOTE | 2019-11-04 12:26 | MORECARE ---
CASE MANAGEMENT DISCHARGE SUMMARY PATIENT: LILIBETH PALOMARES UNIT: [id number] ADM DATE: 11/04/19 AGE: 39 : 80 SEX: F ROOM/BED: D.1203 AUTHOR: ABDIAZIZ FLORENTINO PHYSICIAN: REFERRING PHYSICIAN: PHILLY RUSH MD DATE OF SERVICE: 11/04/19 Discharge Plan Patient Name: LILIBETH PALOMARES Facility: [facility]:[place] : 1980 Planned Disposition: Anticipated Discharge Date: Discharge Date: Expected LOS: Initial Reviewer: [email or web address] Initial Review Date: 11/04/2019 Generated: 11/04/19 1:25 pm Patient Name: LILIBETH PALOMARES Page [phone] at 1226 All edits/amendments must be made on the electronic document DICTATION DATE: 11/04/191224 AIX ARCHITECT: LUCILA 11/04/19 1225 RPT#: [id number] DC DATE: STATUS: ADM IN [facility] [address] [place] [address] END OF REPORT
[2019-11-04 16:00] VITALS: BP 110/68
[2019-11-04 16:54] VITALS: BP 117/75; Ht 154.9 cm; Wt 115.9 kg
--- NOTE | 2019-11-04 17:50 | MORECARE ---
CASE MANAGEMENT DISCHARGE SUMMARY PATIENT: LILIBETH WOODALL UNIT: [id number] ADM DATE: 11/04/19 AGE: 39 : 80 SEX: F ROOM/BED: D.1203 AUTHOR: MISHEL,DOC PHYSICIAN: REFERRING PHYSICIAN: PHILLY RUSH MD DATE OF SERVICE: 11/04/19 Discharge Plan Patient Name: LILIBETH WOODALL Facility: [facility]:[place] : 1980 Planned Disposition: Home Health Service Anticipated Discharge Date: Discharge Date: Expected LOS: Initial Reviewer: [email or web address] Initial Review Date: 11/04/2019 Generated: 11/04/19 6:50 pm Comments DCP- Discharge Planning Updated by [id number]: Marsha Darden on 11/04/19 4:[address] DC plans/Needs: [facility], Shower bench, ?CPM for home use. CM met with patient to discuss initial discharge planning. Patient is in agreement to proceed with the assessment. Patient reports that she lives at home independently, alone. Patient is alert/oriented. Stairs/steps: 10 w/ails. Pharmacy: Gunjan Villalobos APRN, with [facility]. Patient states she has been able to obtain all her prescribed medications. [facility]HS: [facility] (in past), will contact 11/04. DME: [facility]. CPM has not been delivered to her home as yet, and she would like an extended shower bench. CM will contact [facility] 11/04 patient's preference).Patient gives permission to speak with family members. Emergency contact is her adult son, Jerod Woodall [phone] and he will be staying home with her for a couple of weeks. 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 CM discussed the availability of HH, Rehab, SNF, OP Therapy, DME services. Patient states she feels safe returning to her home at this time. Patient denies hospitalization within past 30 days.Patient denies the use of community resources CREDIT NEGOTIATOR. Transportation at time of discharge: will be her son, Jerod. Coverage Notice Reviewer: [id number] - Marsha Darden Notice Issued Date-Time: 11/04/2019 17:47 Notice Type: Patient Choice Letter Notice Delivered To: Patient Relationship to Patient: Self Fire And Explosion Investigator Name: Anna Marie Jimenez Delivery Method: HAND - Hand Delivered Riddhi Days: Prior Verbal Notification: Recipient Understood Notice: Yes Recipient Signature: Yes Med Rec Note Co-signed by Attending: Coverage Notice Comment: Patient Choice signed for [facility]. Original to chart. Patient declines her copy. Last DP export: 11/04/19 11:26 a Patient Name: LILIBETH WOODALL Page [phone] at 1750 All edits/amendments must be made on the electronic document DICTATION DATE: 11/04/191749 GRILL CHEF: LUCILA 11/04/191749 RPT#: [id number] DC DATE: STATUS: ADM IN [facility] [address] [place] [address] END OF REPORT
--- NOTE | 2019-11-04 17:59 | MORECARE ---
CASE MANAGEMENT DISCHARGE SUMMARY PATIENT: LILIBETH WOODALL UNIT: [id number] ADM DATE: 11/04/19 AGE: 39 : 80 SEX: F ROOM/BED: D.1203 AUTHOR: MISHEL,DOC PHYSICIAN: REFERRING PHYSICIAN: PHILLY RUSH MD DATE OF SERVICE: 11/04/19 Discharge Plan Patient Name: LILIBETH WOODALL Facility: [facility]:[place] : 1980 Planned Disposition: Home Health Service Anticipated Discharge Date: Discharge Date: Expected LOS: 0 Initial Reviewer: [email or web address] Initial Review Date: 11/04/2019 Generated: 11/04/19 6:59 pm Comments DCP- Discharge Planning Updated by [email or web address]: Marsha Darden on 11/04/19 4:[address] DC plans/Needs: [facility], Shower bench, ?CPM for home use. CM met with patient to discuss initial discharge planning. Patient is in agreement to proceed with the assessment. Patient reports that she lives at home independently, alone. Patient is alert/oriented. Stairs/steps: 10 w/ails. Pharmacy: Gunjan Villalobos APRN, with [facility]. Patient states she has been able to obtain all her prescribed medications. [facility]HS: [facility] (in past), will contact 11/04. DME: [facility]. CPM has not been delivered to her home as yet, and she would like an extended shower bench. CM will contact [place] DME 11/04 patient's preference).Patient gives permission to speak with family members. Emergency contact is her adult son, Jerod Woodall [phone] and he will be staying home with her for a couple of weeks. 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 CM discussed the availability of HH, Rehab, SNF, OP Therapy, DME services. Patient states she feels safe returning to her home at this time. Patient denies hospitalization within past 30 days.Patient denies the use of community resources DISPATCH SPECIALIST. Transportation at time of discharge: will be her son, Jerod. DCPIA - Discharge Planning Initial Assessment Updated by [email or web address]: Marsha Darden on 11/04/19 5:56 pm * Is the patient Alert and Oriented? Yes * How many steps to enter\\exit or inside your home? 10/rails * PCP Gunjan Villalobos APRN, [facility] * Pharmacy [facility], [facility]. * Preadmission Environment Home Alone * ADLs Independent * Equipment Bedside Commode Walker * Other Equipment request an extended shower chair/bench * List name and contact numbers for known caregivers / representatives who currently or will assist patient after discharge: Jerod Woodall (adult son) [phone] * Verbal permission to speak to the caregivers and representatives has been obtained from the patient. Yes * Community resources currently utilized None * Please name any agencies selected above. [facility] * Additional services required to return to the preadmission environment? Yes * Can the patient safely return to the preadmission environment? Yes * Has this patient been hospitalized within the prior 30 days at any hospital? No Coverage Notice Reviewer: [id number] - Marsha Darden Notice Issued Date-Time: 11/04/2019 17:47 Notice Type: Patient Choice Letter Notice Delivered To: Patient Relationship to Patient: Self News Producer Name: Anna Marie Jimenez Delivery Method: HAND - Hand Delivered Riddhi Days: Prior Verbal Notification: Recipient Understood Notice: Yes Recipient Signature: Yes Med Rec Note Co-signed by Attending: Coverage Notice Comment: Patient Choice signed for [facility]. Original to chart. Patient declines her copy. Last DP export: 11/04/19 4:50 p Patient Name: LILIBETH WOODALL Page [phone] at 1759 All edits/amendments must be made on the electronic document DICTATION DATE: 11/04/191758 TEST PREPARER: LUCILA 11/04/191758 RPT#: [id number] DC DATE: STATUS: ADM IN [facility] [address] [place] [address] END OF REPORT
--- NOTE | 2019-11-04 18:39 | NUR ---
ALERT AND ORIENTED. CPM PLACED ON PATIENT. NO C/O PAIN. NO S/S OF ACUTE DISTRESS NOTED. DENIES ANY NEEDS AT THIS TIME. CALL LIGHT IN REACH. WILL CONTINUE TO MONITOR.
--- NOTE | 2019-11-04 18:45 | NUR ---
BEDSIDE REPORT COMPLETE. INTRODUCED SELF TO PT. PT LYING IN BED. ALERT AND ORIENTED X4. PT CURRENTLY ON CPM TO RIGHT KNEE. RIGHT HAND IV INFUSING 1/2NS @ 100ML/HR. DENIES ANY NEEDS OR PAIN. CALL LIGHT WITHIN REACH. FALL PRECAUTIONS IN PLACE. CPOC
[2019-11-04 20:00] VITALS: BP 122/62
--- NOTE | 2019-11-04 23:41 | NUR ---
PT LYING IN BED EYES CLOSED RESTING COMFORTABLY. RR EVEN AND UNLABORED. CALL LIGHT AND WATER WITHIN REACH. FALL PRECAUTIONS IN PLACE. CPOC
[2019-11-05] VITALS: BP 117/60
--- NOTE | 2019-11-05 00:05 | NUR ---
REAPPLIED TIFFANIE TO THE LEFT LEG. PATIENT UNABLE TO TOLERATE RIGHT SIDE TIFFANIE. SPOKE WITH CHARGE NURSE, SHE LOOKED AND STATED FAWN ROMERO INTEREFERES.
[2019-11-05 01:12] VITALS: BP 117/60
--- NOTE | 2019-11-05 02:27 | NUR ---
PT LYING IN BED EYES CLOSED RESTING QUIETLY. RR EVEN AND UNLABORED. CALL LIGHT WITHIN REACH. FALL PRECAUTIONS IN PLACE. CPOC
[2019-11-05 04:00] VITALS: BP 113/60
--- NOTE | 2019-11-05 05:30 | NUR ---
PT LYING IN BED SUPINE AWAKE. DENIES ANY PAIN OR NEEDS. PLACED LLE IN CPM. CALL LIGHT AND WATER WITHIN REACH.
[2019-11-05 06:12] LABS: HEMATOCRIT 35.4 % (36.0-48.0); HEMOGLOBIN 11.7 g/dL (12-16); MCH 30.4 pg (26.0-34.0); MCHC 33.1 g/dL (31.0-37.0); MCV 91.9 fL (80.0-100.0); MEAN PLATELET VOLUME 8.9 fL (7.4-10.4); RBC 3.85 10x6/uL (4.00-5.40); RDW 16.1 % (11.5-14.5); WBC 13.1 10x3/uL (4.8-10.8)
--- NOTE | 2019-11-05 06:41 | NUR ---
PER PT REQUEST RLE CPM REMOVED PT STATES IT FEELS LIKE IT IS PULLING AT TOP OF INCISION CAUSING PAIN.
--- NOTE | 2019-11-05 06:45 | NUR ---
ALERT AND ORIENTED. POD #1 RIGHT TOTAL KNEE REVISION, DRESSING C/D/I. SCD/PLEXI BOOT. TIFFANIE HOSE ON LLE. C/O SWELLING AND SHARP PAIN TO RIGHT THIGH. THIS NURSE NOTICED ON PATIENT'S LEFT ARM, FROM FINGERS TO MID-FOREARM PETECHIAE ARE PRESENT. NOTIFIED DARÍO SALGADO. NO C/O PAIN. NO S/S OF ACUTE DISTRESS NOTED. IV TO RIGHT HAND, 1/2 NS INFUSING @ 100ML/HR. SITE PATENT WITHOUT REDNESS OR SWELLING. DENIES ANY NEEDS AT THIS TIME. CALL LIGHT IN REACH. WILL CONTINUE TO MONITOR.
[2019-11-05 07:44] VITALS: BP 125/76
--- NOTE | 2019-11-05 08:14 | OP ---
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 PROCEDURE: Revision total knee arthroplasty patellar component only. SURGEON: Philly Rush MD ANESTHESIA: General. INTRAOPERATIVE COMPLICATIONS: None. SUMMARY OF PATHOLOGIC FINDINGS: The previously placed total knee arthroplasty was without patellar component. The patient's primary pain was subpatellar while the patient did maintain chondral surface. This was the patient's complaints that had only been temporarily relieved with cortisone injection. IMPLANTS PLACED: Size 31 mm press fit patella. OPERATIVE SUMMARY IN DETAIL: After obtaining the appropriate preoperative orthopedic surgery consent as well as anesthetic consultation, evaluation and clearance, the patient was brought to the operating room and placed on the operating table in supine position. After adequate general laryngeal mask airway was administered, tourniquet was placed about the proximal aspect of the right lower extremity. Right lower extremity was then prepped and draped in routine sterile fashion. The leg was elevated and exsanguinated, tourniquet inflated to 350 mmHg. After the appropriate timeout was taken and agreed upon by all given the patient's unique identifiers. Incision was made midline, taken down for paramedian arthrotomy. The knee was evaluated in its entirety. There was absolutely no evidence of loosening of the distal or tibial component. The patella was then prepared with excision and the 31 mm press-fit patella was pressed into place. The patella tracked nicely. Good range of motion. At this point, gram of vancomycin and gram of tobramycin were placed into the knee joint and paramedian arthrotomy was closed by DANIE Godwin and FRAN Carlisle with #2 Ethibond followed by #1 Vicryl, 2-0 Vicryl, and skin francois. Sterile dressings were applied. Tourniquet was deflated. The patient was awakened and taken to recovery room in stable condition. All final needle and sponge counts were correct. TRANSINT:[id number] Voice Confirmation ID: [id number] DOCUMENT ID: [id number] PHILLY RUSH MD at 0814 CC: [id number] DICTATION DATE: 11/04/19 1300 REPAIR ORDER CLERK: 11/04/19 2358 ADM IN [facility] [address] [place] [id number]
--- NOTE | 2019-11-05 12:50 | MORECARE ---
CASE MANAGEMENT DISCHARGE SUMMARY PATIENT: LILIBETH WOODALL UNIT: [id number] ADM DATE: 11/04/19 AGE: 39 : 80 SEX: F ROOM/BED: D.1203 AUTHOR: MISHEL,DOC PHYSICIAN: REFERRING PHYSICIAN: PHILLY RUSH MD DATE OF SERVICE: 11/05/19 Discharge Plan Patient Name: LILIBETH WOODALL Facility: [facility]:[place] : 1980 Planned Disposition: Home Health Service Anticipated Discharge Date: Discharge Date: Expected LOS: 0 Initial Reviewer: [email or web address] Initial Review Date: 11/04/2019 Generated: 11/05/19 1:50 pm Comments DCP- Discharge Planning Updated by [email or web address]: Marsha Darden on 11/04/19 4:[address] DC plans/Needs: [facility], Shower bench, ?CPM for home use. CM met with patient to discuss initial discharge planning. Patient is in agreement to proceed with the assessment. Patient reports that she lives at home independently, alone. Patient is alert/oriented. Stairs/steps: 10 w/ails. Pharmacy: Gunjan Villalobos APRN, with [facility]. Patient states she has been able to obtain all her prescribed medications. [facility]HS: [facility] (in past), will contact 11/04. DME: [facility]. CPM has not been delivered to her home as yet, and she would like an extended shower bench. CM will contact [facility] D[facility] 11/04 patient's preference).Patient gives permission to speak with family members. Emergency contact is her adult son, Jerod Woodall [phone] and he will be staying home with her for a couple of weeks. 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 CM discussed the availability of HH, Rehab, SNF, OP Therapy, DME services. Patient states she feels safe returning to her home at this time. Patient denies hospitalization within past 30 days.Patient denies the use of community resources ONLINE PROGRAM COORDINATOR. Transportation at time of discharge: will be her son, Jerod. DCPIA - Discharge Planning Initial Assessment Updated by [email or web address]: Marsha Darden on 11/04/19 5:56 pm * Is the patient Alert and Oriented? Yes * How many steps to enter\\exit or inside your home? 10/rails * PCP Gunjan Villalobos APRN, [facility] * Pharmacy [facility], [facility]. * Preadmission Environment Home Alone * ADLs Independent * Equipment Bedside Commode Walker * Other Equipment request an extended shower chair/bench * List name and contact numbers for known caregivers / representatives who currently or will assist patient after discharge: Jerod Woodall (adult son) [phone] * Verbal permission to speak to the caregivers and representatives has been obtained from the patient. Yes * Community resources currently utilized None * Please name any agencies selected above. [facility] * Additional services required to return to the preadmission environment? Yes * Can the patient safely return to the preadmission environment? Yes * Has this patient been hospitalized within the prior 30 days at any hospital? No External Providers External Provider: OTHER-OTHER Next Contact Date: Service Request Date: Service Type: Resolution: Reviewer: Comments: Coverage Notice Reviewer: [id number] - Marsha Darden Notice Issued Date-Time: 11/04/2019 17:47 Notice Type: Patient Choice Letter Notice Delivered To: Patient Relationship to Patient: Self Drawer In Plain Loom Name: Anna Marie Jmienez Delivery Method: HAND - Hand Delivered Riddhi Days: Prior Verbal Notification: Recipient Understood Notice: Yes Recipient Signature: Yes Med Rec Note Co-signed by Attending: Coverage Notice Comment: Patient Choice signed for [facility]. Original to chart. Patient declines her copy. Last DP export: 11/04/19 4:59 p Patient Name: LILIBETH WOODALL Page 45645 at 1250 All edits/amendments must be made on the electronic document DICTATION DATE: 11/05/19 1250 SEMICONDUCTOR WAFERS SAW OPERATOR: LUCILA 11/05/19 1250 RPT#: [id number] DC DATE: STATUS: ADM IN [facility] [address] [place] [address] END OF REPORT
--- NOTE | 2019-11-05 13:08 | MORECARE ---
CASE MANAGEMENT DISCHARGE SUMMARY PATIENT: LILIBETH WOODALL UNIT: [id number] ADM DATE: 11/04/19 AGE: 39 : 80 SEX: F ROOM/BED: D.1203 AUTHOR: MISHEL,DOC PHYSICIAN: REFERRING PHYSICIAN: PHILLY RUSH MD DATE OF SERVICE: 11/05/19 Discharge Plan Patient Name: LILIBETH WOODALL Facility: [facility]:[place] : 1980 Planned Disposition: Home Health Service Anticipated Discharge Date: Discharge Date: Expected LOS: 0 Initial Reviewer: [email or web address] Initial Review Date: 11/04/2019 Generated: 11/05/19 2:08 pm Comments DCP- Discharge Planning Updated by [email or web address]: Marsha Darden on 11/05/19 11:[address] CM contacted [facility], regarding CPM and Extended shower bench for DC home. Phone #[phone]. Faxed required information/order to [phone]. DCP- Discharge Planning Updated by [email or web address]: Marsha Darden on 11/04/19 4:[address] DC plans/Needs: [facility], Shower bench, ?CPM for home use. CM met with patient to discuss initial discharge planning. Patient is in agreement to proceed with the assessment. Patient reports that she lives at home independently, alone. Patient is alert/oriented. Stairs/steps: 10 w/ails. Pharmacy: Gunjan Villalobos APRN, with [facility]. Patient states she has been able to obtain all her prescribed medications. [facility]: [facility] (in past), will contact 11/04. DME: [facility]. CPM has not been delivered to her home as yet, and she would like an extended shower bench. CM will contact [facility] 11/04 patient's preference).Patient gives permission to speak with family members. Emergency contact is her adult son, Jerod Woodall [phone] and he will be staying home with her for a couple of weeks. At that time, she would like to transition to OP therapy.Patient is Independent with all ADL's, medication management PAN OPERATOR. CM discussed the availability of HH, Rehab, SNF, OP Therapy, DME services. Patient states she feels safe returning to her home at this time. Patient denies hospitalization within past 30 days.Patient denies the use of community resources PAN OPERATOR. Transportation at time of discharge: will be her son, Jerod. DCPIA - Discharge Planning Initial Assessment Updated by [id number]: Marsha Darden on 11/04/19 5:56 pm * Is the patient Alert and Oriented? Yes * How many steps to enter\\exit or inside your home? 10/rails * PCP Gunjan Villalobos APRN, [facility] * Pharmacy [facility], [facility]. * Preadmission Environment Home Alone * ADLs Independent * Equipment Bedside Commode Walker * Other Equipment request an extended shower chair/bench * List name and contact numbers for known caregivers / representatives who currently or will assist patient after discharge: Jerod Woodall (adult son) [phone] * Verbal permission to speak to the caregivers and representatives has been obtained from the patient. Yes * Community resources currently utilized None * Please name any agencies selected above. [facility] * Additional services required to return to the preadmission environment? Yes * Can the patient safely return to the preadmission environment? Yes * Has this patient been hospitalized within the prior 30 days at any hospital? No Coverage Notice Reviewer: [id number] - Marsha Darden Notice Issued Date-Time: 11/04/2019 17:47 Notice Type: Patient Choice Letter Notice Delivered To: Patient Relationship to Patient: Self Maintenance And Custodian Supervisor Name: Anna Marie Jimenez Delivery Method: HAND - Hand Delivered Riddhi Days: Prior Verbal Notification: Recipient Understood Notice: Yes Recipient Signature: Yes Med Rec Note Co-signed by Attending: Coverage Notice Comment: Patient Choice signed for [employer] [facility]. Original to chart. Patient declines her copy. Last DP export: 11/05/19 11:50 a Patient Name: LILIBETH WOODALL Page 14011 at 1308 All edits/amendments must be made on the electronic document DICTATION DATE: 11/05/19 1308 CAPACITOR REPAIRER: LUCILA 11/05/19 1308 RPT#: [id number] DC DATE: STATUS: ADM IN [facility] [address] [place] [address] END OF REPORT
--- NOTE | 2019-11-05 14:26 | NUR ---
I have reviewed this patient and I concur with the Shift Assessment completed by the Licensed Practical Nurse today this shift.
--- NOTE | 2019-11-05 18:51 | NUR ---
ALERT AND ORIENTED. C/O PAIN. NO S/S OF ACUTE DISTRESS NOTED. DENIES ANY NEEDS AT THIS TIME. CALL LIGHT IN REACH. WILL CONTINUE TO MONITOR.
--- NOTE | 2019-11-05 19:30 | NUR ---
ENTERED ROOM AND PATIENT CRYING. STATING PAIN IS UNCONTROLLED. CALMED PATIENT. ASSESSED EMAR, NORCO 10 GIVEN AT 1759. PATIENT STATES PAIN REMAINS UNCONTROLLED. RATES 10/10, CONSTANT, BURNING. PATIENT REFUSED PM CPM DUE TO PAIN. PATIENT CAN HAVE A WORKFORCE PLANNING ANALYST. SPOKE WITH PATIENT ABOUT IMPORTANCE OF OF CPM AND THERAPY. PATIENT STATES UNDERSTANDING. RETRIEVED WORKFORCE PLANNING ANALYST AND MEDS. SET UP. PROVIDED EDUCATION ON WORKFORCE PLANNING ANALYST. SPOKE WITH PATIENT ABOUT GETTING CPM ON ONCE PAIN IS CONTROLLED. PATIENT AGREED. DORSALIS PEDIS PULSES PALPABLE BILATERALLY. MARKED ON THE RIGHT LOWER EXTREMETY FOR EASY ACCESS. TOES WARM WITH LESS THAN THREE SECOND CAPILLARY REFILLED. PATIENT WIGGLES TOES UPON COMMAND. DENIES FURTHER NEEDS. CALL LIGHT CLOSE. CPOC.
[2019-11-05 20:00] VITALS: BP 117/66
--- NOTE | 2019-11-05 20:33 | NUR ---
REASSESSED PATIENT PAIN, PATIENT STATES IT IS FEELING SO MUCH BETTER. HIBBA CLEANSE PROVIDED TO PATIENT WELL. PATIENT STATES HER PAIN IS TRENDING DOWN, NOT RATES 6/10. SPOKE WITH PATIENT ABOUT CPM MACHINE. ALLOWING PAIN MEDICINE TO "KICK IN" AND WILL ATTEMPT CPM AT 9.
--- NOTE | 2019-11-05 21:00 | NUR ---
PLACED PATIENT ON CPM AT 2100
[2019-11-05 21:07] VITALS: BP 128/68
--- NOTE | 2019-11-06 | NUR ---
CPM REMOVED. PATIENT TOLERATED WELL. DENIES FURTHER NEEDS. CALL LIGHT REMAINS IN REACH.
--- NOTE | 2019-11-06 00:40 | NUR ---
COMPLAINING OF ITCHING. REQUESTING BENADRYL. ADMINISTERED PER ORDER. DENIES FURTHER NEEDS AT THIS TIME. CALL LIGHT REMAINS CLOSE TO PATIENT. CPOC.
[2019-11-06 04:00] VITALS: BP 94/56
--- NOTE | 2019-11-06 05:15 | NUR ---
CPM APPLIED TO RIGHT LOWER EXTREMETY
[2019-11-06 05:54] LABS: HEMATOCRIT 35.8 % (36.0-48.0); HEMOGLOBIN 11.4 g/dL (12-16); MCH 29.7 pg (26.0-34.0); MCHC 31.8 g/dL (31.0-37.0); MCV 93.2 fL (80.0-100.0); MEAN PLATELET VOLUME 8.5 fL (7.4-10.4); RBC 3.84 10x6/uL (4.00-5.40); RDW 16.5 % (11.5-14.5)
[2019-11-06 06:02] LABS: WBC 8.8 10x3/uL (4.8-10.8)
--- NOTE | 2019-11-06 07:30 | NUR ---
PT RESTING QUIETLY IN BED WITH EYES CLOSED. AWAKENS SPONTANEOUSLY SHE HEARS STAFF ENTER ROOM. RESP EVEN AND UNLABORED. REPORTS PAIN 3/10 AT THIS TIME. IV TO LEFT FOREARM, WITH 1/2 NS @ 100ML/HR INFUSING VIA PUMP. SITE WITHOUT REDNESS OR EDEMA. DILAUDID SYRUP MAKER INTACT AND UTILIZING FOR PAIN CONTROL. DRESSING C/D/I TO RIGHT LOWER EXTREMITY. CPM IN PLACE AT THIS TIME. INSTRUCTED PT THIS WOULD COME OFF AT 8:15. PT VOICES UNDERSTANDING. PT DENIES FURTHER NEEDS AT THIS TIME. CL WITHIN REACH. ENCOURAGED TO CALL WITH NEEDS. CONTINUE POC
[2019-11-06 08:00] VITALS: BP 99/49
[2019-11-06 11:50] VITALS: BP 91/48
--- NOTE | 2019-11-06 14:52 | MORECARE ---
CASE MANAGEMENT DISCHARGE SUMMARY PATIENT: LILIBETH WOODALL UNIT: [id number] ADM DATE: 11/04/19 AGE: 39 : 80 SEX: F ROOM/BED: D.1203 AUTHOR: MISHEL,DOC PHYSICIAN: REFERRING PHYSICIAN: PHILLY RUSH MD DATE OF SERVICE: 11/06/19 Discharge Plan Patient Name: LILIBETH WOODALL Facility: [facility]:[place] : 1980 Planned Disposition: Home Health Service Anticipated Discharge Date: Discharge Date: Expected LOS: 0 Initial Reviewer: [email or web address] Initial Review Date: 11/04/2019 Generated: 11/06/19 3:51 pm Comments DCP- Discharge Planning Updated by [email or web address]: Marsha Darden on 11/06/19 1:[address] DC Plan: Home 11/06, [facility], #[phone]. Start of care, per Shanell, will be Saturday11/10/19. Re-faxed information to [phone]. Gait: BED MOBILITY WITH SBA SIT TO STAND CGA AMBULATED WITH RW WITH CGA X 60FT, X 65FT. WILL TRY STAIR TRAINING THIS AFTERNOON. UP IN THE CHAIR WITH ALARM AND CL WITHIN REACH DCP- Discharge Planning Updated by [id number]: Marsha Darden on 11/05/19 11:[address] CM contacted [facility] with [facility], regarding CPM and Extended shower bench for DC home. Phone #[phone]. Faxed required information/order to [phone]. DCP- Discharge Planning Updated by [id number]: Marsha Darden on 11/04/19 4:[address] DC plans/Needs: [facility], Shower bench, ?CPM for home use. CM met with patient to discuss initial discharge planning. Patient is in agreement to proceed with the assessment. Patient reports that she lives at home independently, alone. Patient is alert/oriented. Stairs/steps: 10 w/ails. Pharmacy: Gunjan Villalobos APRN, with [facility]. Patient states she has been able to obtain all her prescribed medications. HHS: [facility] (in past), will contact 11/04. DME: [facility]. CPM has not been delivered to her home as yet, and she would like an extended shower bench. CM will contact [facility] 11/04 patient's preference).Patient gives permission to speak with family members. Emergency contact is her adult son, Jerod Woodall [phone] and he will be staying home with her for a couple of weeks. At that time, she would like to transition to OP therapy.Patient is Independent with all ADL's, medication management CROP DUSTER. CM discussed the availability of HH, Rehab, SNF, OP Therapy, DME services. Patient states she feels safe returning to her home at this time. Patient denies hospitalization within past 30 days.Patient denies the use of community resources CROP DUSTER. Transportation at time of discharge: will be her son, Jerod. DCPIA - Discharge Planning Initial Assessment Updated by [id number]: Marsha Darden on 11/04/19 5:56 pm * Is the patient Alert and Oriented? Yes * How many steps to enter\\exit or inside your home? 10/rails * PCP Gunjan Villalobos APRN, [facility] * Pharmacy [facility], [facility]. * Preadmission Environment Home Alone * ADLs Independent * Equipment Bedside Commode Walker * Other Equipment request an extended shower chair/bench * List name and contact numbers for known caregivers / representatives who currently or will assist patient after discharge: Jerod Woodall (adult son) [phone] * Verbal permission to speak to the caregivers and representatives has been obtained from the patient. Yes * Community resources currently utilized None * Please name any agencies selected above. [facility] * Additional services required to return to the preadmission environment? Yes * Can the patient safely return to the preadmission environment? Yes * Has this patient been hospitalized within the prior 30 days at any hospital? No Coverage Notice Reviewer: [id number] - Marsha Darden Notice Issued Date-Time: 11/04/2019 17:47 Notice Type: Patient Choice Letter Notice Delivered To: Patient Relationship to Patient: Self Freight Adjuster Name: Anna Marie Jimenez Delivery Method: HAND - Hand Delivered Riddhi Days: Prior Verbal Notification: Recipient Understood Notice: Yes Recipient Signature: Yes Med Rec Note Co-signed by Attending: Coverage Notice Comment: Patient Choice signed for [facility]. Original to chart. Patient declines her copy. Last DP export: 11/05/19 12:08 p Patient Name: LILIBETH WOODALL Page [id number] at 1452 All edits/amendments must be made on the electronic document DICTATION DATE: 11/06/191450 JOB COACH: LUCILA 11/06/191450 RPT#: [id number] DC DATE: STATUS: ADM IN [facility] [address] [place] [address] END OF REPORT
[2019-11-06 15:00] VITALS: BP 98/49
--- NOTE | 2019-11-06 16:32 | MORECARE ---
CASE MANAGEMENT DISCHARGE SUMMARY PATIENT: LILIBETH WOODALL UNIT: [id number] ADM DATE: 11/04/19 AGE: 39 : 80 SEX: F ROOM/BED: D.1203 AUTHOR: MISHEL,DOC PHYSICIAN: REFERRING PHYSICIAN: PHILLY RUSH MD DATE OF SERVICE: 11/06/19 Discharge Plan Patient Name: LILIBETH WOODALL Facility: [facility]:[place] : 1980 Planned Disposition: Home Health Service Anticipated Discharge Date: Discharge Date: Expected LOS: 0 Initial Reviewer: [email or web address] Initial Review Date: 11/04/2019 Generated: 11/06/19 5:32 pm Comments DCP- Discharge Planning Updated by [email or web address]: Marsha Darden on 11/06/19 1:[address] DC Plan: Home 11/06, [facility], #[phone]. Start of care, per Shanell, will be Saturday11/10/19. Re-faxed information to [phone]. Gait: BED MOBILITY WITH SBA SIT TO STAND CGA AMBULATED WITH RW WITH CGA X 60FT, X 65FT. WILL TRY STAIR TRAINING THIS AFTERNOON. UP IN THE CHAIR WITH ALARM AND CL WITHIN REACH DCP- Discharge Planning Updated by [id number]: Marsha Darden on 11/05/19 11:[address] CM contacted [facility] with [facility], regarding CPM and Extended shower bench for DC home. Phone #[phone]. Faxed required information/order to [phone]. DCP- Discharge Planning Updated by [id number]: Marsha Darden on 11/04/19 4:[address] DC plans/Needs: [facility], Shower bench, ?CPM for home use. CM met with patient to discuss initial discharge planning. Patient is in agreement to proceed with the assessment. Patient reports that she lives at home independently, alone. Patient is alert/oriented. Stairs/steps: 10 w/ails. Pharmacy: Gunjan Villalobos APRN, with [facility]. Patient states she has been able to obtain all her prescribed medications. HHS: [facility] (in past), will contact 11/04. DME: [facility]. CPM has not been delivered to her home as yet, and she would like an extended shower bench. CM will contact [place] 11/04 patient's preference).Patient gives permission to speak with family members. Emergency contact is her adult son, Jerod Woodall [phone] and he will be staying home with her for a couple of weeks. 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 CM discussed the availability of HH, Rehab, SNF, OP Therapy, DME services. Patient states she feels safe returning to her home at this time. Patient denies hospitalization within past 30 days.Patient denies the use of community resources CANADIAN BACON TIER. Transportation at time of discharge: will be her son, Jerod. DCPIA - Discharge Planning Initial Assessment Updated by [email or web address]: Marsha Darden on 11/04/19 5:56 pm * Is the patient Alert and Oriented? Yes * How many steps to enter\\exit or inside your home? 10/rails * PCP Gunjan Villalobos APRN, [facility] * [facility]acy [facility], [facility]. * Preadmission Environment Home Alone * ADLs Independent * Equipment Bedside Commode Walker * Other Equipment request an extended shower chair/bench * List name and contact numbers for known caregivers / representatives who currently or will assist patient after discharge: Jerod Woodall (adult son) [phone] * Verbal permission to speak to the caregivers and representatives has been obtained from the patient. Yes * Community resources currently utilized None * Please name any agencies selected above. [facility] * Additional services required to return to the preadmission environment? Yes * Can the patient safely return to the preadmission environment? Yes * Has this patient been hospitalized within the prior 30 days at any hospital? No Coverage Notice Reviewer: [id number] - Marsha Darden Notice Issued Date-Time: 11/04/2019 17:47 Notice Type: Patient Choice Letter Notice Delivered To: Patient Relationship to Patient: Self Livery Car Driver Name: Anna Marie Jimenez Delivery Method: HAND - Hand Delivered Riddhi Days: Prior Verbal Notification: Recipient Understood Notice: Yes Recipient Signature: Yes Med Rec Note Co-signed by Attending: Coverage Notice Comment: Patient Choice signed for [facility]. Original to chart. Patient declines her copy. Last DP export: 11/06/19 1:52 p Patient Name: LILIBETH WOODALL Page [id number] at 1632 All edits/amendments must be made on the electronic document DICTATION DATE: 11/06/19 163 FINANCIAL SALES ASSOCIATE: LUCILA 11/06/19 1632 RPT#: [id number] DC DATE: STATUS: ADM IN [facility] [address] [place] [address] END OF REPORT
--- NOTE | 2019-11-06 16:54 | MORECARE ---
CASE MANAGEMENT DISCHARGE SUMMARY PATIENT: LILIBETH WOODALL UNIT: [id number] ADM DATE: 11/04/19 AGE: 39 : 80 SEX: F ROOM/BED: D.1203 AUTHOR: MISHEL,DOC PHYSICIAN: REFERRING PHYSICIAN: PHILLY RUSH MD DATE OF SERVICE: 11/06/19 Discharge Plan Patient Name: LILIBETH WOODALL Facility: [facility]:[place] : 1980 Planned Disposition: Home Health Service Anticipated Discharge Date: 11/07/19 Discharge Date: Expected LOS: 3 Initial Reviewer: [email or web address] Initial Review Date: 11/04/2019 Generated: 11/06/19 5:54 pm Comments DCP- Discharge Planning Updated by [id number]: Marsha Darden on 11/06/19 1:[address] DC Plan: Home 11/06, [facility], #[id number]. Start of care, per Shanell, will be Saturday11/10/19. Re-faxed information to [phone]. Gait: BED MOBILITY WITH SBA SIT TO STAND CGA AMBULATED WITH RW WITH CGA X 60FT, X 65FT. WILL TRY STAIR TRAINING THIS AFTERNOON. UP IN THE CHAIR WITH ALARM AND CL WITHIN REACH DCP- Discharge Planning Updated by [id number]: Marsha Darden on 11/05/19 11:[address] CM contacted [facility] with [facility], regarding CPM and Extended shower bench for DC home. Phone #[phone]. Faxed required information/order to [phone]. DCP- Discharge Planning Updated by [id number]: Marsha Darden on 11/04/19 4:[address] DC plans/Needs: [facility], Shower bench, ?CPM for home use. CM met with patient to discuss initial discharge planning. Patient is in agreement to proceed with the assessment. Patient reports that she lives at home independently, alone. Patient is alert/oriented. Stairs/steps: 10 w/ails. Pharmacy: Gunjan Villalobos APRN, with [facility]. Patient states she has been able to obtain all her prescribed medications. HHS: [facility] (in past), will contact 11/04. DME: [facility]. CPM has not been delivered to her home as yet, and she would like an extended shower bench. CM will contact [facility] 11/04 patient's preference).Patient gives permission to speak with family members. Emergency contact is her adult son, Jerod Woodall [phone] and he will be staying home with her for a couple of weeks. 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 CM discussed the availability of HH, Rehab, SNF, OP Therapy, DME services. Patient states she feels safe returning to her home at this time. Patient denies hospitalization within past 30 days.Patient denies the use of community resources PRODUCT CONSULTANT. Transportation at time of discharge: will be her son, Jerod. DCPIA - Discharge Planning Initial Assessment Updated by [id number]: Marsha Darden on 11/04/19 5:56 pm * Is the patient Alert and Oriented? Yes * How many steps to enter\\exit or inside your home? 10/rails * PCP Gunjan Villalobos APRN, [facility] * Pharmacy [facility], [facility]. * Preadmission Environment Home Alone * ADLs Independent * Equipment Bedside Commode Walker * Other Equipment request an extended shower chair/bench * List name and contact numbers for known caregivers / representatives who currently or will assist patient after discharge: Jerod Woodall (adult son) [phone] * Verbal permission to speak to the caregivers and representatives has been obtained from the patient. Yes * Community resources currently utilized None * Please name any agencies selected above. [facility] * Additional services required to return to the preadmission environment? Yes * Can the patient safely return to the preadmission environment? Yes * Has this patient been hospitalized within the prior 30 days at any hospital? No Coverage Notice Reviewer: [id number] - Marsha Darden Notice Issued Date-Time: 11/04/2019 17:47 Notice Type: Patient Choice Letter Notice Delivered To: Patient Relationship to Patient: Self Digital Watch Assembler Name: Anna Marie Jimenez Delivery Method: HAND - Hand Delivered Riddhi Days: Prior Verbal Notification: Recipient Understood Notice: Yes Recipient Signature: Yes Med Rec Note Co-signed by Attending: Coverage Notice Comment: Patient Choice signed for [facility]. Original to chart. Patient declines her copy. Last DP export: 11/06/19 3:32 p Patient Name: LILIBETH WOODALL Page [id number] at 1654 All edits/amendments must be made on the electronic document DICTATION DATE: 11/06/191653 VENDING MACHINE REFILLER: LUCILA 11/06/191653 RPT#: [id number] DC DATE: STATUS: ADM IN [facility] [address] [place] [address] END OF REPORT
--- NOTE | 2019-11-06 19:00 | NUR ---
REMOVED CPM AND ASSISTED PT TO BATHROOM. PT ABLE TO WALK WITH WALKER BY SELF BUT HAS TROUBLE LIFTING LEG IN AND OUT OF BED. ONCE BACK IN BED, PLACED CPM BACK ON AND NORCO GIVEN FOR PAIN
[2019-11-06 20:00] VITALS: BP 122/66
--- NOTE | 2019-11-06 20:45 | NUR ---
HS MEDS GIVEN ORDERED. CPM TAKEN OFF AT THIS TIME. UNABLE TO LIFT LEG BY SELF. ICE PACK APPLIED TO RIGHT LEG. DENIES OTHER NEEDS AT THIS TIME. CL IN REACH, WILL CTM
--- NOTE | 2019-11-06 21:50 | NUR ---
PT ASSISTED TO BATHROOM AND BACK TO BED. DENIES NEEDS, CL IN REACH
[2019-11-07] VITALS: BP 106/58
[2019-11-07 04:30] VITALS: BP 109/72
--- NOTE | 2019-11-07 05:30 | NUR ---
CPM PLACED ON AT THIS TIME
--- NOTE | 2019-11-07 07:20 | NUR ---
PT RESTING IN BED WITH EYES CLOSED. RESP EVEN AND UNLABORED. RATES PAIN 3/10 AT THIS TIME. CPM TO RIGHT LOWER EXTREMITY. DRESSING C/D/I. PPPX4. SALINE LOC TO LEFT FOREARM. SITE WITHOUT REDNESS OR EDEMA. PT DENIES FURTHER NEEDS AT THIS TIME. CL WITHIN REACH. ENCOURAGED TO CALL WITH NEEDS. CONTINUE POC
[2019-11-07 08:18] VITALS: BP 99/56
--- NOTE | 2019-11-07 09:50 | NUR ---
PT AMBULATING IN HALLWAY WITH WALKER WITH PT. PT DARIEL WELL.
--- NOTE | 2019-11-07 10:18 | NUR ---
ADMINISTERED PRN NORCO FOR REPORTED PAIN OF 9/10 IN THE RIGHT KNEE. NO DIFFICULTY. PT IS RESTING RECLINED IN BED. DENIES ANY OTHER NEEDS AT THIS TIME.
[2019-11-07] MEDS ORDERED: ELIQUIS2.5 MG PO (10:47)
[2019-11-07] MEDS ORDERED: HYDROCODON-ACE1 EA10 PO (10:47)
--- NOTE | 2019-11-07 11:09 | NUR ---
PT RESTING QUIETLY IN BED. NO ACUTE DISTRESS NOTED AT THIS TIME. CL WITHIN REACH. ENCOURAGED TO CALL WITH NEEDS.
[2019-11-07 11:52] VITALS: BP 125/73
--- NOTE | 2019-11-07 13:15 | NUR ---
PT DISCHARGE INSTRUCTIONS PROVIDED. EDUCATED PT REGARDING MONITORING FOR S/S OF INFECTION. DRESSING CHANGED TO RIGHT KNEE. KELSIE INTACT, WITHOUT REDNESS EDEMA OR DRAINAGE. SALINE LOC DISCONTINUED TO LEFT FOREARM, CATH INTACT. DISCUSSED PRESCRIPTION MEDICATIONS AND NEED TO FILL PRESCRIPTIONS. PT TAKEN OUT TO PRIVATE VEHICLE WITH ALL PERSONAL POSESSIONS.
--- NOTE | 2019-11-07 14:47 | MORECARE ---
CASE MANAGEMENT DISCHARGE SUMMARY PATIENT: LILIBETH WOODALL UNIT: [id number] ADM DATE: 11/04/19 AGE: 39 : 80 SEX: F ROOM/BED: D.1203 AUTHOR: MISHEL,DOC PHYSICIAN: REFERRING PHYSICIAN: PHILLY RUSH MD DATE OF SERVICE: 11/07/19 Discharge Plan Patient Name: LILIBETH WOODALL Facility: [facility]:[place] : 1980 Planned Disposition: Home Health Service Anticipated Discharge Date: 11/07/19 Discharge Date: 11/07/2019 Expected LOS: 3 Initial Reviewer: [id number] Initial Review Date: 11/04/2019 Generated: 11/07/19 3:46 pm Comments DCP- Discharge Planning Updated by [email or web address]: Rachel Fountain on 11/07/19 1:[address] CM FAXED D/C INS AND D/C MEDS TO [facility] DCP- Discharge Planning Updated by [email or web address]: Marsha Darden on 11/06/19 1:[address] DC Plan: Home 11/06, [facility], #[phone]. Start of care, per Shanell, will be Saturday11/10/19. Re-faxed information to [phone]. Gait: BED MOBILITY WITH SBA SIT TO STAND CGA AMBULATED WITH RW WITH CGA X 60FT, X 65FT. WILL TRY STAIR TRAINING THIS AFTERNOON. UP IN THE CHAIR WITH ALARM AND CL WITHIN REACH DCP- Discharge Planning Updated by [email or web address]: Marsha Darden on 11/05/19 11:[address] CM contacted [facility], regarding CPM and Extended shower bench for DC home. Phone #[phone]. Faxed required information/order to [phone]. DCP- Discharge Planning Updated by [email or web address]: Marsha Darden on 11/04/19 4:[address] DC plans/Needs: [facility], Shower bench, ?CPM for home use. CM met with patient to discuss initial discharge planning. Patient is in agreement to proceed with the assessment. Patient reports that she lives at home independently, alone. Patient is alert/oriented. Stairs/steps: 10 w/ails. Pharmacy: Gunjan Villalobos APRN, with [facility]. Patient states she has been able to obtain all her prescribed medications. [facility]: [facility] (in past), will contact 11/04. DME: [facility]. CPM has not been delivered to her home as yet, and she would like an extended shower bench. CM will contact [place] 11/04 patient's preference).Patient gives permission to speak with family members. Emergency contact is her adult son, Jerod Woodall [phone] and he will be staying home with her for a couple of weeks. 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 CM discussed the availability of HH, Rehab, SNF, OP Therapy, DME services. Patient states she feels safe returning to her home at this time. Patient denies hospitalization within past 30 days.Patient denies the use of community resources VICE PRESIDENT LENDING. Transportation at time of discharge: will be her son, Jerod. DCPIA - Discharge Planning Initial Assessment Updated by [email or web address]: Marsha Darden on 11/04/19 5:56 pm * Is the patient Alert and Oriented? Yes * How many steps to enter\\exit or inside your home? 10/rails * PCP Gunjan Villalobos APRN, [facility] * [facility]. * Preadmission Environment Home Alone * ADLs Independent * Equipment Bedside Commode Walker * Other Equipment request an extended shower chair/bench * List name and contact numbers for known caregivers / representatives who currently or will assist patient after discharge: Jerod Woodall (adult son) [phone] * Verbal permission to speak to the caregivers and representatives has been obtained from the patient. Yes * Community resources currently utilized None * Please name any agencies selected above. [facility] * Additional services required to return to the preadmission environment? Yes * Can the patient safely return to the preadmission environment? Yes * Has this patient been hospitalized within the prior 30 days at any hospital? No External Providers [facility] Next Contact Date: Service Request Date: Service Type: Resolution: Reviewer: Comments: Coverage Notice Reviewer: [email or web address] - [place] Notice Issued Date-Time: 11/04/2019 17:47 Notice Type: Patient Choice Letter Notice Delivered To: Patient Relationship to Patient: Self Sheeter Operator Name: Anna Marie Jimenez Delivery Method: HAND - Hand Delivered Riddhi Days: Prior Verbal Notification: Recipient Understood Notice: Yes Recipient Signature: Yes Med Rec Note Co-signed by Attending: Coverage Notice Comment: Patient Choice signed for [facility]. Original to chart. Patient declines her copy. Last DP export: 11/06/19 3:54 p Patient Name: LILIBETH WOODALL Page [id number] at 1447 All edits/amendments must be made on the electronic document DICTATION DATE: 11/07/19 1446 ENVIRONMENTAL COMPLIANCE TECHNICIAN: LUCILA 11/07/19 1446 RPT#: [id number] DC DATE:11/07/19 STATUS: DIS IN [facility] [address] [place] [address] END OF REPORT
--- NOTE | 2019-11-07 14:55 | MORECARE ---
CASE MANAGEMENT DISCHARGE SUMMARY PATIENT: LILIBETH WOODALL UNIT: [id number] ADM DATE: 11/04/19 AGE: 39 : 80 SEX: F ROOM/BED: D.1203 AUTHOR: MISHEL,DOC PHYSICIAN: REFERRING PHYSICIAN: PHILLY RUSH MD DATE OF SERVICE: 11/07/19 Discharge Plan Patient Name: LILIBETH WOODALL Facility: [facility]:[place] : 1980 Planned Disposition: Home Health Service Anticipated Discharge Date: 11/07/19 Discharge Date: 11/07/2019 Expected LOS: 3 Initial Reviewer: [email or web address] Initial Review Date: 11/04/2019 Generated: 11/07/19 3:54 pm Comments DCP- Discharge Planning Updated by [email or web address]: Rachel Fountain on 11/07/19 1:[address] CM FAXED D/C INS AND D/C MEDS TO [facility] DCP- Discharge Planning Updated by [email or web address]: Marsha Darden on 11/06/19 1:[address] DC Plan: Home 11/06, [facility], #[id number]. Start of care, per Shanell, will be Saturday11/10/19. Re-faxed information to [phone]. Gait: BED MOBILITY WITH SBA SIT TO STAND CGA AMBULATED WITH RW WITH CGA X 60FT, X 65FT. WILL TRY STAIR TRAINING THIS AFTERNOON. UP IN THE CHAIR WITH ALARM AND CL WITHIN REACH DCP- Discharge Planning Updated by [email or web address]: Marsha Darden on 11/05/19 11:[address] CM contacted [facility], regarding CPM and Extended shower bench for DC home. Phone #[phone]. Faxed required information/order to [phone]. DCP- Discharge Planning Updated by [email or web address]: Marsha Darden on 11/04/19 4:[address] DC plans/Needs: [facility], Shower bench, ?CPM for home use. CM met with patient to discuss initial discharge planning. Patient is in agreement to proceed with the assessment. Patient reports that she lives at home independently, alone. Patient is alert/oriented. Stairs/steps: 10 w/ails. Pharmacy: Gunjan Villalobos APRN, with [facility]. Patient states she has been able to obtain all her prescribed medications. HHS: [facility] (in past), will contact 11/04. DME: [facility]. CPM has not been delivered to her home as yet, and she would like an extended shower bench. CM will contact [place] 11/04 patient's preference).Patient gives permission to speak with family members. Emergency contact is her adult son, Jerod Woodall [phone] and he will be staying home with her for a couple of weeks. 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 CM discussed the availability of HH, Rehab, SNF, OP Therapy, DME services. Patient states she feels safe returning to her home at this time. 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 Transportation at time of discharge: will be her son, Jerod. DCPIA - Discharge Planning Initial Assessment Updated by [email or web address]: Marsha Darden on 11/04/19 5:56 pm * Is the patient Alert and Oriented? Yes * How many steps to enter\\exit or inside your home? 10/rails * PCP Gunjan Villalobos APRN, [facility] * Pharmacy [facility]. * Preadmission Environment Home Alone * ADLs Independent * Equipment Bedside Commode Walker * Other Equipment request an extended shower chair/bench * List name and contact numbers for known caregivers / representatives who currently or will assist patient after discharge: Jerod Woodall (adult son) [phone] * Verbal permission to speak to the caregivers and representatives has been obtained from the patient. Yes * Community resources currently utilized None * Please name any agencies selected above. [facility] * Additional services required to return to the preadmission environment? Yes * Can the patient safely return to the preadmission environment? Yes * Has this patient been hospitalized within the prior 30 days at any hospital? No Coverage Notice Reviewer: [id number] Vera Darden Notice Issued Date-Time: 11/04/2019 17:47 Notice Type: Patient Choice Letter Notice Delivered To: Patient Relationship to Patient: Self Author'S Agent Name: Anna Marie Jimenez Delivery Method: HAND - Hand Delivered Riddhi Days: Prior Verbal Notification: Recipient Understood Notice: Yes Recipient Signature: Yes Med Rec Note Co-signed by Attending: Coverage Notice Comment: Patient Choice signed for [facility]. Original to chart. Patient declines her copy. Last DP export: 11/07/19 1:47 p Patient Name: LILIBETH WOODALL Page 48853 at 1454 All edits/amendments must be made on the electronic document DICTATION DATE: 11/07/198 TREE PLANTER: LUCILA 11/07/19 1452 RPT#: [id number] DC DATE:11/07/19 STATUS: DIS IN [facility] [address] [place] [address] END OF REPORT
--- NOTE | 2019-11-10 15:57 | MORECARE ---
CASE MANAGEMENT DISCHARGE SUMMARY PATIENT: LILIBETH WOODALL UNIT: [id number] ADM DATE: 11/04/19 AGE: 39 : 80 SEX: F ROOM/BED: D.1203 AUTHOR: MISHEL,DOC PHYSICIAN: REFERRING PHYSICIAN: PHILLY RUSH MD DATE OF SERVICE: 11/10/19 Discharge Plan Patient Name: LILIBETH WOODALL Facility: [facility]:[place] : 1980 Planned Disposition: Home Health Service Anticipated Discharge Date: 11/07/19 Discharge Date: 11/07/2019 Expected LOS: 3 Initial Reviewer: [email or web address] Initial Review Date: 11/04/2019 Generated: 11/10/19 4:56 pm Comments DCP- Discharge Planning Updated by [email or web address]: Rachel Fountain on 11/07/19 1:[address] CM FAXED D/C INS AND D/C MEDS TO [facility] DCP- Discharge Planning Updated by [email or web address]: Marsha Darden on 11/06/19 1:[address] DC Plan: Home 11/06, [facility], #[id number]. Start of care, per Shanell, will be Saturday11/10/19. Re-faxed information to [phone]. Gait: BED MOBILITY WITH SBA SIT TO STAND CGA AMBULATED WITH RW WITH CGA X 60FT, X 65FT. WILL TRY STAIR TRAINING THIS AFTERNOON. UP IN THE CHAIR WITH ALARM AND CL WITHIN REACH DCP- Discharge Planning Updated by [email or web address]: Marsha Darden on 11/05/19 11:[address] CM contacted [facility], regarding CPM and Extended shower bench for DC home. Phone #[phone]. Faxed required information/order to [phone]. DCP- Discharge Planning Updated by [email or web address]: Marsha Darden on 11/04/19 4:[address] DC plans/Needs: [facility], Shower bench, ?CPM for home use. CM met with patient to discuss initial discharge planning. Patient is in agreement to proceed with the assessment. Patient reports that she lives at home independently, alone. Patient is alert/oriented. Stairs/steps: 10 w/ails. Pharmacy: Gunjan Villalobos APRN, with [facility]. Patient states she has been able to obtain all her prescribed medications. HHS: [facility] (in past), will contact 11/04. DME: [facility]. CPM has not been delivered to her home as yet, and she would like an extended shower bench. CM will contact [place] 11/04 patient's preference).Patient gives permission to speak with family members. Emergency contact is her adult son, Jerod Woodall [phone] and he will be staying home with her for a couple of weeks. 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 CM discussed the availability of HH, Rehab, SNF, OP Therapy, DME services. Patient states she feels safe returning to her home at this time. 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 Transportation at time of discharge: will be her son, Jerod. DCPIA - Discharge Planning Initial Assessment Updated by [id number]: Marsha Darden on 11/04/19 5:56 pm * Is the patient Alert and Oriented? Yes * How many steps to enter\\exit or inside your home? 10/rails * PCP Gunjan Villalobos APRN, [facility] * Pharmacy [facility], [facility]. * Preadmission Environment Home Alone * ADLs Independent * Equipment Bedside Commode Walker * Other Equipment request an extended shower chair/bench * List name and contact numbers for known caregivers / representatives who currently or will assist patient after discharge: Jerod Woodall (adult son) [phone] * Verbal permission to speak to the caregivers and representatives has been obtained from the patient. Yes * Community resources currently utilized None * Please name any agencies selected above. [facility] * Additional services required to return to the preadmission environment? Yes * Can the patient safely return to the preadmission environment? Yes * Has this patient been hospitalized within the prior 30 days at any hospital? No Coverage Notice Reviewer: [email or web address] Vera Darden Notice Issued Date-Time: 11/04/2019 17:47 Notice Type: Patient Choice Letter Notice Delivered To: Patient Relationship to Patient: Self Frontload Driver Name: Anna Marie Jimenez Delivery Method: HAND - Hand Delivered Riddhi Days: Prior Verbal Notification: Recipient Understood Notice: Yes Recipient Signature: Yes Med Rec Note Co-signed by Attending: Coverage Notice Comment: Patient Choice signed for [facility]. Original to chart. Patient declines her copy. Last DP export: 11/07/19 1:55 p Patient Name: LILIBETH WOODALL Page [id number] at 1557 All edits/amendments must be made on the electronic document DICTATION DATE: 11/10/196 EQUIPMENT PROCESSER STORAGE: LUCILA 11/10/19 1556 RPT#: [id number] DC DATE:11/07/19 STATUS: DIS IN [facility] [address] [place] [address] END OF REPORT
== END 2019-11-07 14:12 | disposition home health service (06) | DRG 465 ==
LOC: D.SDCHOLD 09-09 10:00 → D.M3 11-04 05:50 → D.SDCHOLD 11-04 08:00 → D.M3 11-04 11:00
PROVIDERS: ADMIT Orthopaedic Surgery; ATTEND Orthopaedic Surgery
PROC: 0SRC0NA Replacement of Right Knee Joint with Patellofemoral Synthetic Substitute, Uncemented, Open Approach (ICD-10-PCS; 2019-11-04)
PROC: 0SPC0NZ Removal of Patellofemoral Synthetic Substitute from Right Knee Joint, Open Approach (ICD-10-PCS; principal; 2019-11-04 10:30)
DX: T84.84XA Pain due to internal orthopedic prosthetic devices, implants and grafts, initial encounter (principal); Y83.9 Surgical procedure, unspecified as the cause of abnormal reaction of the patient, or of later complication, without mention of misadventure at the time of the procedure; I10 Essential (primary) hypertension; Z87.891 Personal history of nicotine dependence

== ENCOUNTER 2020-11-09 16:00 | Outpatient (CLI) | payer MEDICAID ==
[2019-11-04 16:54] VITALS: BMI 48.3
[~2020-11-09 16:00] MED LIST changes: +KLONOPIN0.5 MG PO; +MINIPRESS2 MG PO; +PROZAC20 MG PO; +SEROQUEL50 MG PO
== END 2020-11-09 23:59 | disposition home or self-care (01) ==
LOC: D.MAMMO 16:00
PROVIDERS: ATTEND Nurse Practitioner
DX: Z12.31 Encounter for screening mammogram for malignant neoplasm of breast (principal)